=== PATIENT | female | born 1995 | race Caucasian/White ===

== ENCOUNTER 2017-05-04 18:48 | Emergency (ER) | payer MEDICAID ==
[2017-05-04 19:10] VITALS: BP 129/56
[2017-05-04] MEDS ORDERED: ALBUTEROL NEB 2.5 MG/3 ML INH STA (20:38)
[2017-05-04] MEDS ORDERED: predniSONE 20 MG TABLET PO STA (20:39)
--- NOTE | 2017-05-04 21:11 | XRAY Preliminary Report ---
Exam: XR CHEST 1 VIEW X-RAY IMPRESSION: Normal single view chest. [facility] SITE ID: [id number]
--- NOTE | 2017-05-04 21:13 | XRAY Report ---
EXAM: CHEST RADIOGRAPHY EXAM DATE: 05/04/2017 08:54 PM. CLINICAL HISTORY: Cough. COMPARISON: None. TECHNIQUE: 1 view. FINDINGS: Lungs/Pleura: No focal opacities evident. No pleural effusion. No pneumothorax. Mediastinum: Within exam limitations, the cardiomediastinal contour is normal. Other: None. IMPRESSION: Normal single view chest. [facility] Referring Provider Line: [phone] SITE ID: [id number]
--- NOTE | 2017-05-04 21:35 | ED Physician Documentation ---
PD HPI URI - Stated complaint Stated Complaint: COUGH/VOMITING BLOOD/CHEST TIGHTNESS - Chief complaint Chief Complaint: Resp - History obtained from History obtained from: Patient, Friend - History of Present Illness Timing - onset: Yesterday Timing details: Intermittant Associated symptoms: Dry cough. No: Fever, Chills Similar symptoms before: Work up / diagnostics Recently seen: Not recently seen - Additional information Additional information: Patient is a 22 year old female with a history of asthma who is presenting to the emergency department for wheezing, cough and some blood tinged sputum. Patient states that she has been cough for the last week or so but today she was coughing so much that she threw up and also had some blood tinged sputum with her coughing so she came to the emergency department for evaluation. Review of Systems Constitutional: denies: Fever, Chills, Myalgias Eyes: denies: Decreased vision, Photophobia Ears: reports: Reviewed and negative Nose: denies: Rhinorrhea / runny nose, Congestion Throat: reports: Reviewed and negative Cardiac: denies: Chest pain / pressure, Palpitations Respiratory: reports: Cough, Hemoptysis, Wheezing GI: reports: Vomiting. denies: Nausea : reports: Reviewed and negative Skin: reports: Reviewed and negative Musculoskeletal: reports: Reviewed and negative Neurologic: denies: Generalized weakness, Focal weakness, Headache Immunocompromised: denies: Immunocompromised PD PAST MEDICAL HISTORY - Past Medical History Past Medical History: No - Past Surgical History Past Surgical History: No - Present Medications Home Medications: Ambulatory Orders Medication Instructions Recorded Confirmed Albuterol Sulfate [Proventil Hfa 1 - 2 puffs INH Q4H PRN #1 inhaler 05/04/17 Inhaler] predniSONE [Prednisone] 40 mg PO DAILY 5 Days tablet 05/04/17 - Allergies Allergies/Adverse Reactions: Allergies Allergy/AdvReac Type Severity Reaction Status Date / Time acetaminophen [From Vicodin] Allergy Hives Verified 05/04/17 19:10 hydrocodone [From Vicodin] Allergy Hives Verified 05/04/17 19:10 - Social History Does the pt smoke?: No Smoking Status: Never smoker Does the pt drink ETOH?: No Does the pt have substance abuse?: Yes Substance Use and Type: Marijuana - Immunizations Immunizations are current?: Yes - POLST Patient has POLST: No PD ED PE NORMAL - Vitals Vital signs reviewed: Yes - General General: Alert and oriented X 3, No acute distress - HEENT HEENT: Atraumatic, PERRL - Neck Neck: Supple, no meningeal sign, No JVD - Cardiac Cardiac: RRR, No murmur - Abdomen Abdomen: Soft, Non tender, Non distended - Derm Derm: Normal color, Warm and dry, No rash - Neuro Neuro: Alert and oriented X 3, No motor deficit, No sensory deficit, Normal speech - Psych Psych: Normal mood PD ED PE EXPANDED - Respiratory Respiratory: Wheezing (minimal wheezing bilaterally) Results - Vitals Vitals: Vital Signs - 24 hr 05/04/17 05/04/17 19:07 20:50 Temperature 36.3 C L Heart Rate 102 H 97 Respiratory 16 16 Rate Blood Pressure 129/56 L O2 Saturation 97 Oxygen O2 Source Room air - Rads (name of study) chest x-ray Radiology: Final report received (normal chest) PD MEDICAL DECISION MAKING - ED course Complexity details: reviewed old records, reviewed results, re-evaluated patient , considered differential, d/w patient ED course: Patient was seen and examined at bedside. patient was well appearing and in no acute distress. Patient was treated with steroids and duoneb. Chest x-ray was ordered. When patient returned from imaging the results were reviewed. there is no acute abnormality. Patient stated that she was feeling a bit better after her treatments. Patient was not hypoxic and was well appearing. patient required no further work up and was stable for discharge with outpatient follow up. Departure - Departure Disposition: 01 Home, Self Care Clinical Impression: Bronchitis Condition: Good Instructions: ED Bronchitis Asthmatic Follow-Up: primary,care provider [Other] - Within 3 Days Prescriptions: Albuterol Sulfate [Proventil Hfa Inhaler] 1 - 2 puffs INH Q4H PRN #1 inhaler PRN Reason: Shortness Of Air/Wheezing predniSONE [Prednisone] 40 mg PO DAILY 5 Days tablet Comments: Your chest x-ray today was within normal limits. there was no sign of pneumonia. Your symptoms are likely viral in nature. You will be on steroids for the next 5 days and you can use your inhaler ever 2 hours as needed. You should take over the counter cough and cold medicines as needed. You should follow up with your doctor if your symptoms persist. You may return to the emergency department at any time for new, worsening or uncontrollable symptoms. Discharge Date/Time: 05/04/17 21:43
== END 2017-05-04 21:43 | disposition home or self-care (01) ==
LOC: ED 18:48
DX: J45.909 Unspecified asthma, uncomplicated (principal)
CPT/HCPCS: 71045; 94640; 99283; J7512; J7613

== ENCOUNTER 2017-06-27 19:21 | Emergency (ER) | payer MEDICAID ==
[2017-06-27] MEDS ORDERED: ALBUTEROL NEB 2.5 MG/3 ML INH STA (20:00)
--- NOTE | 2017-06-27 20:03 | ED Physician Documentation ---
PD HPI DYSPNEA - Stated complaint Stated Complaint: COUGH/LUMP ON CHEST - Chief complaint Chief Complaint: Resp - History obtained from History obtained from: Patient - History of Present Illness Timing - onset: Other (22-year-old woman with multiple complaints, she has a bruise on her left upper chest and she does not know how it got there. She is worried about a blood clot. She also has a week's worth of productive cough with underlying asthma and tobacco abuse. And her menses is heavier than normal with possibility of . At least it was heavier than normal but is back to normal.) Review of Systems Constitutional: denies: Fever, Chills Throat: denies: Sore throat Respiratory: reports: Dyspnea, Cough GI: denies: Abdominal Pain PD PAST MEDICAL HISTORY - Past Medical History Past Medical History: No - Past Surgical History Past Surgical History: No - Present Medications Home Medications: Ambulatory Orders Medication Instructions Recorded Confirmed Albuterol Sulfate [Proventil Hfa 1 - 2 puffs IH Q4H PRN #1 06/27/17 Inhaler] hfa.aer.ad predniSONE [Deltasone] 60 mg PO DAILY 5 Days tablet 06/27/17 - Allergies Allergies/Adverse Reactions: Allergies Allergy/AdvReac Type Severity Reaction Status Date / Time acetaminophen [From Vicodin] Allergy Hives Verified 05/04/17 19:10 hydrocodone [From Vicodin] Allergy Hives Verified 06/27/17 19:33 - Social History Does the pt smoke?: Yes Smoking Status: Current every day smoker Does the pt drink ETOH?: No Does the pt have substance abuse?: Yes - Immunizations Immunizations are current?: Yes - POLST Patient has POLST: No PD ED PE NORMAL - Vitals Vital signs reviewed: Yes - General General: Alert and oriented X 3, No acute distress - HEENT HEENT: PERRL, EOMI, Ears normal, Moist mucous membranes, Pharynx benign - Neck Neck: Supple, no meningeal sign, No bony TTP - Cardiac Cardiac: RRR, No murmur - Respiratory Respiratory: No respiratory distress, Clear bilaterally - Derm Derm: Other (On the left upper chest wall there is a small bruise with mild tenderness without obvious pathologic features.) - Neuro Neuro: Alert and oriented X 3, Normal speech - Psych Psych: Normal mood, Normal affect Results - Vitals Vitals: Vital Signs - 24 hr 06/27/17 06/27/17 06/27/17 19:31 20:11 20:48 Temperature 36.1 C L 36.4 C L Heart Rate 87 77 Respiratory 16 20 Rate Blood Pressure 122/66 120/54 L O2 Saturation 99 Oxygen O2 Source Room air - Labs Labs: Laboratory Tests 06/27/17 20:11 Ur Specific [place] >=1.030 H Urine HCG, Qual NEGATIVE Departure - Departure Disposition: Home, Self Care Clinical Impression: Vaginal bleeding Traumatic ecchymosis of chest Qualifiers: Encounter type: initial encounter Qualified Code(s): S20.20XA - Contusion of thorax, unspecified, initial encounter Asthma Qualifiers: Asthma severity: mild Asthma persistence: intermittent Asthma complication type : with acute exacerbation Qualified Code(s): J45.21 - Mild intermittent asthma with (acute) exacerbation Condition: Good Record reviewed to determine appropriate education?: Yes Instructions: Asthma Dc Prescriptions: Albuterol Sulfate [Proventil Hfa Inhaler] 1 - 2 puffs IH Q4H PRN #1 hfa.[email or web address] PRN Reason: Cough predniSONE [Deltasone] 60 mg PO DAILY 5 Days tablet Comments: Call your doctor to arrange a follow-up appointment, make the next available appointment. In the interim, return anytime if worse or if new symptoms develop. Discharge Date/Time: 06/27/17 20:53
[2017-06-27 20:16] LABS: HCG UR QUAL NEGATIVE
[2017-06-27 20:49] VITALS: BP 120/54
== END 2017-06-27 20:53 | disposition home or self-care (01) ==
LOC: ED 19:21
DX: S20.212A Contusion of left front wall of thorax, initial encounter (principal); J45.21 Mild intermittent asthma with (acute) exacerbation; N93.9 Abnormal uterine and vaginal bleeding, unspecified; F17.200 Nicotine dependence, unspecified, uncomplicated
CPT/HCPCS: 81025; 94640; 99283

== ENCOUNTER 2017-10-19 19:24 | Emergency (ER) | payer MEDICAID ==
[2017-10-19 19:51] LABS: BILIRUBIN,URINE NEGATIVE (NEGATIVE); GLUCOSE, URINE (UA) NEGATIVE (NEGATIVE); KETONES,URINE (UA) NEGATIVE (NEGATIVE); LEUKOCYTE ESTERASE, URINE NEGATIVE (NEGATIVE); NITRITE,URINE NEGATIVE (NEGATIVE); OCCULT BLOOD,URINE MODERATE (NEGATIVE); PROTEIN,URINE NEGATIVE (NEGATIVE); UROBILINOGEN,URINE 0.2 (NORMAL) E.U./dL (NORMAL)
[2017-10-19 19:52] LABS: CLARITY,URINE HAZY (CLEAR)
[2017-10-19 19:53] LABS: HCG UR QUAL POSITIVE
[2017-10-19 19:56] LABS: BACTERIA,URINE Rare /HPF (None Seen); SQUAMOUS EPITHELIAL CELL,UR MOD Squamous (<= Few)
[2017-10-19 20:44] LABS: BASOPHILS # (AUTO) 0.1 10^3/uL (0.0-0.1); BASOPHILS % (AUTO) 0.7 %; EOSINOPHILS # (AUTO) 0.2 10^3/uL (0.0-0.7); EOSINOPHILS % (AUTO) 1.7 %; HGB - HEMOGLOBIN 12.9 g/dL (12.0-16.0); LYMPHOCYTES # (AUTO) 4.1 10^3/uL (1.5-3.5); LYMPHOCYTES % (AUTO) 38.5 %; MEAN CORPUSCULAR HEMOGLOBIN 29.8 pg (27.0-31.0); MEAN CORPUSCULAR HGB CONC 32.8 g/dL (32.0-36.0); MEAN CORPUSCULAR VOLUME 90.9 fL (81.0-99.0); MEAN PLATELET VOLUME 7.8 fL (7.9-10.8); MONOCYTES # (AUTO) 0.6 10^3/uL (0.0-1.0); MONOCYTES % (AUTO) 5.8 %; NEUTROPHILS # (AUTO) 5.7 10^3/uL (1.5-6.6); NEUTROPHILS % (AUTO) 53.3 %; PLT - PLATELET COUNT 298 10^3/uL (130-450); RED BLOOD COUNT 4.34 10^6/uL (4.20-5.40); RED CELL DISTRIBUTION WIDTH 13.3 % (12.0-15.0); WHITE BLOOD COUNT 10.7 x10^3/uL (4.8-10.8)
[2017-10-19 20:58] LABS: ALBUMIN 4.1 g/dL (3.2-5.5); ALBUMIN/GLOBULIN RATIO 1.1 (1.0-2.2); BILIRUBIN,TOTAL 0.3 mg/dL (0.2-1.0); CALCIUM 8.9 mg/dL (8.5-10.3); CREATININE 0.8 mg/dL (0.4-1.0); TOTAL PROTEIN 7.7 g/dL (6.7-8.2)
[2017-10-19 21:42] VITALS: BP 122/88
[2017-10-19] MEDS ORDERED: NITROFURANTOIN MACRO 100 MG CAPSULE PO STA (22:03)
--- NOTE | 2017-10-19 22:31 | ED Physician Documentation ---
PD HPI FEMALE - Stated complaint Stated Complaint: VOMITING - Chief complaint Chief Complaint: Abd Pain - History obtained from History obtained from: Patient, Family - History of Present Illness Timing - onset: How many days ago, How many weeks ago (1) Timing - details: Gradual onset, Intermittant Associated symptoms: Abdominal pain. No: Urinary frequency Similar symptoms before: Has not had sx before Recently seen: Not recently seen - Additional information Additional information: Patient is a 22 year old female with no significant past medical history who is presenting to the emergency department for nausea, vomiting and intermittent abdominal pain. patient states that she has had some spotting but does not know when her last cycle was. Review of Systems Ten Systems: 10 systems reviewed and negative GI: reports: Abdominal Pain, Nausea. denies: Vomiting, Constipation, Diarrhea : reports: Vaginal bleeding PD PAST MEDICAL HISTORY - Past Medical History Past Medical History: No - Past Surgical History Past Surgical History: No - Present Medications Home Medications: Ambulatory Orders Medication Instructions Recorded Confirmed Nitrofurantoin Monohyd/M-Cryst 100 mg PO BID 5 Days capsule 10/19/17 [Macrobid 100 mg Capsule] Omeprazole [PriLOSEC] 1 tab PO PRN PRN 10/19/17 10/19/17 - Allergies Allergies/Adverse Reactions: Allergies Allergy/AdvReac Type Severity Reaction Status Date / Time acetaminophen [From Vicodin] Allergy Hives Verified 10/19/17 19:34 hydrocodone [From Vicodin] Allergy Hives Verified 10/19/17 19:34 - Social History Does the pt smoke?: Yes Smoking Status: Current every day smoker Does the pt drink ETOH?: No Does the pt have substance abuse?: Yes - Immunizations Immunizations are current?: Yes - POLST Patient has POLST: No PD ED PE NORMAL - Vitals Vital signs reviewed: Yes - General General: Alert and oriented X 3, No acute distress - HEENT HEENT: Atraumatic - Cardiac Cardiac: RRR - Respiratory Respiratory: No respiratory distress - Abdomen Abdomen: Soft, Non tender, Non distended - Derm Derm: Normal color, No rash - Extremities Extremities: No deformity - Neuro Neuro: Alert and oriented X 3 Eye Opening: Spontaneous Results - Vitals Vitals: Vital Signs - 24 hr 10/19/17 10/19/17 19:31 21:41 Temperature 36.8 C Heart Rate 71 78 Respiratory 18 18 Rate Blood Pressure 116/76 122/88 H O2 Saturation 100 100 Oxygen O2 Source Room air - Labs Labs: Laboratory Tests 10/19/17 10/19/17 10/19/17 19:35 19:35 20:39 WBC 10.7 RBC 4.34 Hgb 12.9 Hct 39.4 MCV 90.9 MCH 29.8 MCHC 32.8 RDW 13.3 Plt Count 298 MPV 7.8 L Neut # (Auto) 5.7 Lymph # (Auto) 4.[address] [place] # (Auto) 0.6 Eos # (Auto) 0.2 Baso # (Auto) 0.1 Absolute Nucleated RBC 0.01 Nucleated RBC % 0.1 Sodium Potassium Chloride Carbon Dioxide Anion Gap BUN Creatinine Estimated GFR (MDRD) Glucose Calcium Total Bilirubin AST ALT Alkaline Phosphatase Total Protein Albumin Globulin Albumin/Globulin Ratio Lipase HCG, Quant Urine Color YELLOW Urine Clarity HAZY Urine pH 6.0 Ur Specific [place] >=1.030 H >=1.030 H Urine Protein NEGATIVE Urine Glucose (UA) NEGATIVE Urine Ketones NEGATIVE Urine Occult Blood MODERATE H Urine Nitrite NEGATIVE Urine Bilirubin NEGATIVE Urine Urobilinogen 0.2 (NORMAL) Ur Leukocyte Esterase NEGATIVE Urine RBC 6-10 H Urine WBC 11-25 H Ur Squamous Epith Cells MOD Squamous H Urine Bacteria Rare Urine Culture Comments NOT INDICATED Urine HCG, Qual POSITIVE Blood Type 10/19/17 10/19/17 10/19/17 20:39 20:39 20:39 WBC RBC Hgb Hct MCV MCH MCHC RDW Plt Count MPV Neut # (Auto) Lymph # (Auto) [place] # (Auto) Eos # (Auto) Baso # (Auto) Absolute Nucleated RBC Nucleated RBC % Sodium 139 Potassium 3.8 Chloride 106 Carbon Dioxide 25 Anion Gap 8.0 BUN 12 Creatinine 0.8 Estimated GFR (MDRD) 88 L Glucose 92 Calcium 8.9 Total Bilirubin 0.3 AST 18 ALT 13 Alkaline Phosphatase 81 Total Protein 7.7 Albumin 4.1 Globulin 3.6 Albumin/Globulin Ratio 1.1 Lipase 30 HCG, Quant 8077.00 Urine Color Urine Clarity Urine pH Ur Specific [place] Urine Protein Urine Glucose (UA) Urine Ketones Urine Occult Blood Urine Nitrite Urine Bilirubin Urine Urobilinogen Ur Leukocyte Esterase Urine RBC Urine WBC Ur Squamous Epith Cells Urine Bacteria Urine Culture Comments Urine HCG, Qual Blood Type O POSITIVE - Rads (name of study) pelvic ultrasound Radiology: Prelim report reviewed, Final report received (IUP approximately 5 weeks, no pole appreciated, could be early , follow up necessary) , EMP read contemporaneously PD MEDICAL DECISION MAKING - ED course Complexity details: reviewed old records, reviewed results, re-evaluated patient , considered differential, d/w patient, d/w family ED course: Patient was seen and examined at bedside. urine was collected and patient was found to be and have signs of a urinary tract infection. labs were drawn and imaging was ordered. when patient returned form imaging she was treated with macrobid and results were reviewed. Findings were consistent with either early or miscarriage. Patient was made aware of the findings and given detailed discharge and follow up instructions. patient required no further work up at this time and was stable for discharge with outpatient follow up. - Sepsis Event Vital Signs: Vital Signs - 24 hr 10/19/17 10/19/17 19:31 21:41 Temperature 36.8 C Heart Rate 71 78 Respiratory 18 18 Rate Blood Pressure 116/76 122/88 H O2 Saturation 100 100 Oxygen O2 Source Room air Departure - Departure Disposition: 01 Home, Self Care Clinical Impression: UTI in Condition: Good Instructions: Preg 1st Trimester, ED UTI Cystitis Female Follow-[facility]: [facility] [Provider Group] Krystian Urbina MD [Provider Admit Priv/Credential] - Prescriptions: Nitrofurantoin Monohyd/M-Cryst [Macrobid 100 mg Capsule] 100 mg PO BID 5 Days capsule Comments: Your symptoms today are being caused by a couple of things. you are and you have a urinary tract infection. you have been started on an antibiotic and will need to be on it for the next 5 days. it is important that you stay well hydrated. you should follow up with your doctor or you can call the office of Dr. Urbina to schedule a follow up appointment. you should return to the emergency department for vaginal bleeding, new worsening or uncontrollable symptoms.
--- NOTE | 2017-10-19 22:34 | Ultrasound Report ---
Procedure Date: 10/19/2017 Accession Number: [id number] / [id number] Procedure: US - OB First Trimester CPT Code: FULL RESULT: EXAM: FIRST TRIMESTER OBSTETRIC ULTRASOUND (Less than 11 weeks) EXAM DATE: 10/19/2017 09:49 PM. CLINICAL HISTORY: Preg vag bleeding. LMP: 09/09/2017. COMPARISONS: None. TECHNIQUE: Transabdominal ultrasound examination with static image documentation. The patient declines transvaginal imaging. CLINICAL DATES: EGA 5 weeks 5 days with MOISES 06/16/2018 based on LMP. ASSESSMENT: Gestational Sac: Single intrauterine. Mean gestational sac diameter: 11.1 mm = 5 weeks 1 day. Embryo: Not visualized. Yolk sac: Possible small yolk sac measuring 3.7 mm. Amniotic fluid: Not accurately assessed at this gestational age. Early placenta: Not visible at this gestational age. Other: No perigestational fluid collection demonstrated. MATERNAL STRUCTURES: Uterus: Anteverted/Retroverted. Unremarkable. Cervix: Closed. Right Ovary/Adnexa: Unremarkable. The ovary measures 3.1 x 1.5 x 3.5 cm, volume 8.5 cc. Left Ovary/Adnexa: Unremarkable. The ovary measures 2.7 x 2.0 x 2.2 cm, volume 6.1 cc. Free Fluid: None. Other: None. IMPRESSION: 1. Intrauterine gestational sac measuring approximately 5 weeks 1 day. Viability is unknown. Embryo not visualized on this transabdominal examination. The patient declines transvaginal imaging. 2. Short-term sonographic follow-up is recommended. [facility]
== END 2017-10-19 22:39 | disposition home or self-care (01) ==
LOC: ED 19:24
DX: O23.40 Unspecified infection of urinary tract in pregnancy, unspecified trimester (principal); O99.330 Smoking (tobacco) complicating pregnancy, unspecified trimester
CPT/HCPCS: 36415; 76801; 80053; 81001; 81025; 83690; 84702; 85025; 86900; 86901; 99283; A9270; 87086

== ENCOUNTER 2017-10-29 13:36 | Emergency (ER) | payer MEDICAID ==
[2017-10-29 14:11] VITALS: BP 129/73
== END 2017-10-29 15:50 | disposition left against medical advice (07) ==
LOC: ED 13:36
DX: Z53.21 Procedure and treatment not carried out due to patient leaving prior to being seen by health care provider (principal)

== ENCOUNTER 2017-11-10 10:30 | Outpatient (CLI) | payer MEDICAID ==
--- NOTE | 2017-11-10 13:05 | Ultrasound Report ---
Procedure Date: 11/10/2017 Accession Number: [id number] / [id number] Procedure: US - OB Transvaginal CPT Code: FULL RESULT: EXAM: OB First Trimester, OB Transvaginal DATE: 11/10/2017 11:56 AM CLINICAL HISTORY: ENCOUNTER FOR TEST, RESULT POSITIVE TECHNIQUE: Real-time scanning was performed with community engagement representative static images obtained. Transabdominal and transvaginal technique were used. COMPARISON: None FINDINGS: The patient is self reported last menstrual period is 09/09/2017. The maternal uterus is anteverted with a closed cervix. Right ovary measures 2.9 x 2.8 x 3.3 cm a volume of 14 mL and is otherwise unremarkable preserved flow by color Doppler. The left ovary measures 3.6 x 2.2 x 2.1 cm for a volume of 9 mL and is unremarkable with preserved flow by color Doppler. There is a single live intrauterine gestation with a gestational sac diameter of 28.8 mm a crown-rump length of 22.5 mm and a heart rate of 177 bpm. The yolk sac measures 4 mm. The sonographic age is 8 weeks and 6 days by crown-rump length. There is no perigestational fluid collection. IMPRESSION: Single live intrauterine gestation with a sonographic age of 8 weeks and 6 days by crown-rump length.
--- NOTE | 2017-11-10 13:05 | Ultrasound Report ---
Procedure Date: 11/10/2017 Accession Number: [id number] / [id number] Procedure: US - OB First Trimester CPT Code: FULL RESULT: EXAM: OB First Trimester, OB Transvaginal DATE: 11/10/2017 11:56 AM CLINICAL HISTORY: ENCOUNTER FOR TEST, RESULT POSITIVE TECHNIQUE: Real-time scanning was performed with customer solutions representative static images obtained. Transabdominal and transvaginal technique were used. COMPARISON: None FINDINGS: The patient is self reported last menstrual period is 09/09/2017. The maternal uterus is anteverted with a closed cervix. Right ovary measures 2.9 x 2.8 x 3.3 cm a volume of 14 mL and is otherwise unremarkable preserved flow by color Doppler. The left ovary measures 3.6 x 2.2 x 2.1 cm for a volume of 9 mL and is unremarkable with preserved flow by color Doppler. There is a single live intrauterine gestation with a gestational sac diameter of 28.8 mm a crown-rump length of 22.5 mm and a heart rate of 177 bpm. The yolk sac measures 4 mm. The sonographic age is 8 weeks and 6 days by crown-rump length. There is no perigestational fluid collection. IMPRESSION: Single live intrauterine gestation with a sonographic age of 8 weeks and 6 days by crown-rump length.
== END 2017-11-10 10:31 | disposition home or self-care (01) ==
LOC: DI 10:30
PROVIDERS: ATTEND Registered Nurse
DX: Z32.01 Encounter for pregnancy test, result positive (principal)
CPT/HCPCS: 76801; 76817

== ENCOUNTER 2017-11-27 16:10 | Outpatient (CLI) | payer MEDICAID ==
[2017-11-27 16:29] LABS: BASOPHILS # (AUTO) 0.1 10^3/uL (0.0-0.1); BASOPHILS % (AUTO) 0.9 %; EOSINOPHILS # (AUTO) 0.1 10^3/uL (0.0-0.7); EOSINOPHILS % (AUTO) 0.7 %; HGB - HEMOGLOBIN 13.3 g/dL (12.0-16.0); LYMPHOCYTES # (AUTO) 3.5 10^3/uL (1.5-3.5); LYMPHOCYTES % (AUTO) 32.3 %; MEAN CORPUSCULAR HGB CONC 34.2 g/dL (32.0-36.0); MEAN CORPUSCULAR VOLUME 87.5 fL (81.0-99.0); MEAN PLATELET VOLUME 7.4 fL (7.9-10.8); MONOCYTES # (AUTO) 0.8 10^3/uL (0.0-1.0); MONOCYTES % (AUTO) 7.5 %; NEUTROPHILS # (AUTO) 6.4 10^3/uL (1.5-6.6); NEUTROPHILS % (AUTO) 58.6 %; PLT - PLATELET COUNT 275 10^3/uL (130-450); RED BLOOD COUNT 4.45 10^6/uL (4.20-5.40); RED CELL DISTRIBUTION WIDTH 13.9 % (12.0-15.0); WHITE BLOOD COUNT 10.9 x10^3/uL (4.8-10.8)
[2017-11-27 16:40] LABS: BILIRUBIN,URINE NEGATIVE (NEGATIVE); GLUCOSE, URINE (UA) NEGATIVE (NEGATIVE); KETONES,URINE (UA) NEGATIVE (NEGATIVE); LEUKOCYTE ESTERASE, URINE NEGATIVE (NEGATIVE); NITRITE,URINE NEGATIVE (NEGATIVE); OCCULT BLOOD,URINE SMALL (NEGATIVE); PROTEIN,URINE NEGATIVE (NEGATIVE); UROBILINOGEN,URINE 0.2 (NORMAL) E.U./dL (NORMAL)
[2017-11-27 17:07] LABS: BACTERIA,URINE Many /HPF (None Seen); CLARITY,URINE HAZY (CLEAR); SQUAMOUS EPITHELIAL CELL,UR MANY Squamous (<= Few)
[2017-11-28 13:42] LABS: HEPATITIS C ANTIBODY NON-REACTIVE (NON-REACTIVE); HIV AG/AB 4TH GEN NON-REACTIVE (NON-REACTIVE)
[2017-11-28 13:43] LABS: HEPATITIS B SURFACE ANTIGEN NON-REACTIVE (NON-REACTIVE)
== END 2017-11-27 16:11 | disposition home or self-care (01) ==
LOC: LAB 16:10
PROVIDERS: ATTEND Nurse Practitioner Obstetrics & Gynecology
DX: Z36.9 Encounter for antenatal screening, unspecified (principal)
CPT/HCPCS: 36415; 81001; 81599; 85025; 86592; 86762; 86803; 86850; 86900; 86901; 87340; 87389

== ENCOUNTER 2017-11-28 19:29 | Emergency (ER) | payer MEDICAID ==
[2017-11-28] MEDS ORDERED: SODIUM CHLORIDE 0.9% 1,000 ML IV ONE (19:45)
[2017-11-28] MEDS ORDERED: METOCLOPRAMIDE 10 MG/2 ML VIAL IVP STA (19:45)
[2017-11-28 20:08] LABS: BASOPHILS # (AUTO) 0.1 10^3/uL (0.0-0.1); BASOPHILS % (AUTO) 0.9 %; EOSINOPHILS # (AUTO) 0.1 10^3/uL (0.0-0.7); EOSINOPHILS % (AUTO) 0.5 %; HGB - HEMOGLOBIN 13.3 g/dL (12.0-16.0); LYMPHOCYTES # (AUTO) 3.4 10^3/uL (1.5-3.5); LYMPHOCYTES % (AUTO) 30.5 %; MEAN CORPUSCULAR HEMOGLOBIN 30.3 pg (27.0-31.0); MEAN CORPUSCULAR HGB CONC 34.7 g/dL (32.0-36.0); MEAN CORPUSCULAR VOLUME 87.3 fL (81.0-99.0); MEAN PLATELET VOLUME 7.6 fL (7.9-10.8); MONOCYTES # (AUTO) 0.6 10^3/uL (0.0-1.0); MONOCYTES % (AUTO) 5.5 %; NEUTROPHILS # (AUTO) 6.9 10^3/uL (1.5-6.6); NEUTROPHILS % (AUTO) 62.6 %; PLT - PLATELET COUNT 284 10^3/uL (130-450); RED CELL DISTRIBUTION WIDTH 13.9 % (12.0-15.0)
[2017-11-28 20:20] LABS: ALBUMIN 4.2 g/dL (3.2-5.5); ALBUMIN/GLOBULIN RATIO 1.2 (1.0-2.2); BILIRUBIN,TOTAL 0.3 mg/dL (0.2-1.0); CALCIUM 9.3 mg/dL (8.5-10.3); CREATININE 0.6 mg/dL (0.4-1.0); TOTAL PROTEIN 7.7 g/dL (6.7-8.2)
--- NOTE | 2017-11-28 20:21 | ED Physician Documentation ---
History of Present Illness - Stated complaint Stated Complaint: 11 WKS PREG/VOMITTING - Chief complaint Chief Complaint: Abd Pain - History obtained from History obtained from: Patient, Family - History of Present Illness Timing: How many weeks ago (several) Pain level max: 0 Pain level now: 0 Improved by: nothing Worsened by: eating - Additonal information Additional information: Patient is a 22-year-old female, 1 para 0, approximately 11 weeks who presents to the emergency department with nausea and vomiting for the past several days. Worsened today. Unable to tolerate p.o. today. Denies any abdominal cramping, Vaginal bleeding or discharge. Review of Systems Constitutional: denies: Fever, Chills Respiratory: denies: Cough GI: reports: Nausea, Vomiting. denies: Diarrhea Skin: denies: Rash Musculoskeletal: denies: Neck pain, Back pain Neurologic: denies: Headache PD PAST MEDICAL HISTORY - Past Medical History Past Medical History: No - Past Surgical History Past Surgical History: No - Present Medications Home Medications: Ambulatory Orders Medication Instructions Recorded Confirmed Metoclopramide [Reglan] 10 mg PO Q6H PRN #10 tablet 11/28/17 Ondansetron Odt [Zofran Odt] 4 tab PO Q8HR PRN 11/28/17 11/28/17 Ranitidine HCl [Acid Overhead Foreman] 1 tab PO DAILY 11/28/17 11/28/17 - Allergies Allergies/Adverse Reactions: Allergies Allergy/AdvReac Type Severity Reaction Status Date / Time acetaminophen [From Vicodin] Allergy Hives Verified 11/28/17 20:04 hydrocodone [From Vicodin] Allergy Hives Verified 11/28/17 20:04 - Social History Does the pt smoke?: Yes Smoking Status: Current every day smoker Does the pt drink ETOH?: No Does the pt have substance abuse?: Yes - Immunizations Immunizations are current?: Yes - POLST Patient has POLST: No PD ED PE NORMAL - Vitals Vital signs reviewed: Yes - General General: Alert and oriented X 3 - HEENT HEENT: Moist mucous membranes - Neck Neck: Supple, no meningeal sign - Cardiac Cardiac: RRR - Respiratory Respiratory: No respiratory distress, Clear bilaterally - Abdomen Abdomen: Soft, Non tender, Non distended - Derm Derm: Warm and dry - Neuro Neuro: Alert and oriented X 3 - Psych Psych: Normal mood, Normal affect Results - Vitals Vitals: Vital Signs - 24 hr 11/28/17 11/28/17 19:30 20:53 Temperature 36.4 C L 36.1 C L Heart Rate 75 67 Respiratory 18 16 Rate Blood Pressure 145/94 H 143/76 H O2 Saturation 98 100 Oxygen O2 Source Room air - Labs Labs: Laboratory Tests 11/28/17 11/28/17 11/28/17 19:55 19:55 20:34 WBC 11.0 H RBC 4.40 Hgb 13.3 Hct 38.4 MCV 87.3 MCH 30.3 MCHC 34.7 RDW 13.9 Plt Count 284 MPV 7.6 L Neut # (Auto) 6.9 H Lymph # (Auto) 3.4 [place] # (Auto) 0.6 Eos # (Auto) 0.1 Baso # (Auto) 0.1 Absolute Nucleated RBC 0.01 Nucleated RBC % 0.0 Sodium 136 Potassium 3.4 L Chloride 104 Carbon Dioxide 24 Anion Gap 8.0 BUN 5 L Creatinine 0.6 Estimated GFR (MDRD) 123 Glucose 93 Calcium 9.3 Total Bilirubin 0.3 AST 22 ALT 25 Alkaline Phosphatase 58 Total Protein 7.7 Albumin 4.2 Globulin 3.5 Albumin/Globulin Ratio 1.2 Lipase 45 Urine Color YELLOW Urine Clarity CLEAR Urine pH 6.0 Ur Specific [place] 1.025 Urine Protein NEGATIVE Urine Glucose (UA) NEGATIVE Urine Ketones 40 H Urine Occult Blood NEGATIVE Urine Nitrite NEGATIVE Urine Bilirubin NEGATIVE Urine Urobilinogen 0.2 (NORMAL) Ur Leukocyte Esterase NEGATIVE Ur Microscopic Review NOT INDICATED Urine Culture Comments NOT INDICATED PD MEDICAL DECISION MAKING - ED course Complexity details: reviewed results, re-evaluated patient, considered differential, d/w patient ED course: Patient is 11 weeks , presents with nausea and vomiting. Feels better after IV fluids and Reglan. Bedside ultrasound reveals a intrauterine with movement present. heart rate of 162 bpm. Patient feels much better after medications and is tolerating p.o. without difficulty. Abdomen is soft, nontender nondistended. No vaginal bleeding or discharge. I will have her follow-up with her doctor for further care. Patient counseled regarding signs and symptoms for which I believe and urgent re-evaluation would be necessary. Patient with good understanding of and agreement to plan and is comfortable going home at this time This document was made in part using voice recognition software. While efforts are made to proofread this document, sound alike and grammatical errors may occur. - Sepsis Event Vital Signs: Vital Signs - 24 hr 11/28/17 11/28/17 19:30 20:53 Temperature 36.4 C L 36.1 C L Heart Rate 75 67 Respiratory 18 16 Rate Blood Pressure 145/94 H 143/76 H O2 Saturation 98 100 Oxygen O2 Source Room air Departure - Departure Disposition: Home, Self Care Clinical Impression: Dehydration Vomiting Qualifiers: Vomiting type: unspecified Vomiting Intractability: non-intractable Nausea presence: with nausea Qualified Code(s): R11.2 - Nausea with vomiting, unspecified Qualifiers: Weeks of gestation: 11 weeks Qualified Code(s): Z3A.11 - 11 weeks gestation of Condition: Good Instructions: ED Preg Morning Sickness, ED Care Follow-Up: your,doctor in 1 week [Other] Prescriptions: Metoclopramide [Reglan] 10 mg PO Q6H PRN #10 tablet PRN Reason: Nausea / Vomiting Comments: Drink plenty of fluids. Return if you worsen. Discharge Date/Time: 11/28/17 21:03
[2017-11-28 20:45] LABS: BILIRUBIN,URINE NEGATIVE (NEGATIVE); GLUCOSE, URINE (UA) NEGATIVE (NEGATIVE); KETONES,URINE (UA) 40 mg/dL (NEGATIVE); LEUKOCYTE ESTERASE, URINE NEGATIVE (NEGATIVE); NITRITE,URINE NEGATIVE (NEGATIVE); OCCULT BLOOD,URINE NEGATIVE (NEGATIVE); PROTEIN,URINE NEGATIVE (NEGATIVE); UROBILINOGEN,URINE 0.2 (NORMAL) E.U./dL (NORMAL)
[2017-11-28 20:49] LABS: CLARITY,URINE CLEAR (CLEAR)
[2017-11-28 20:54] VITALS: BP 143/76
== END 2017-11-28 21:03 | disposition home or self-care (01) ==
LOC: ED 19:29
DX: O21.1 Hyperemesis gravidarum with metabolic disturbance (principal); O99.331 Smoking (tobacco) complicating pregnancy, first trimester; F17.200 Nicotine dependence, unspecified, uncomplicated; Z3A.11 11 weeks gestation of pregnancy
CPT/HCPCS: 36415; 80053; 81003; 83690; 85025; 96361; 96374; 99283; J2765; 81001; 87086

== ENCOUNTER 2017-11-30 16:09 | Outpatient (CLI) | payer MEDICAID ==
[2017-11-30 16:34] LABS: MUDS CUTOFF CONCENTRATIONS CUTOFF CONC BELOW:
[2017-11-30 16:53] LABS: AMPHETAMINE SCREEN,URINE NEGATIVE (NEGATIVE); BENZODIAZEPINES SCREEN, URINE NEGATIVE (NEGATIVE); COCAINE SCREEN URINE NEGATIVE (NEGATIVE); METHAMPHETAMINES SCREEN, URINE NEGATIVE (NEGATIVE); OPIATE SCREEN, URINE NEGATIVE (NEGATIVE)
[2017-11-30 16:54] LABS: METHADONE SCREEN, URINE NEGATIVE (NEGATIVE); OXYCODONE SCREEN, URINE NEGATIVE (NEGATIVE); PROPOXYPHENE SCREEN, URINE NEGATIVE (NEGATIVE); TRICYCLIC ANTIDEPRESSANT,URINE NEGATIVE (NEGATIVE)
== END 2017-11-30 16:10 | disposition home or self-care (01) ==
LOC: LAB.R 16:09
PROVIDERS: ATTEND Nurse Practitioner Obstetrics & Gynecology
DX: Z36.9 Encounter for antenatal screening, unspecified (principal)
CPT/HCPCS: 80306

== ENCOUNTER 2018-01-11 06:55 | Emergency (ER) | payer MEDICAID ==
[2018-01-11] MEDS ORDERED: METOCLOPRAMIDE 10 MG/2 ML VIAL IVP STA (07:42)
[2018-01-11] MEDS ORDERED: SODIUM CHLORIDE 0.9% 1,000 ML IV ONE (07:42)
[2018-01-11] MEDS ORDERED: ACETAMINOPHEN 1,000 MG/100 ML 100 ML IV STA (07:44)
[2018-01-11 07:45] LABS: BILIRUBIN,URINE NEGATIVE (NEGATIVE); GLUCOSE, URINE (UA) NEGATIVE (NEGATIVE); KETONES,URINE (UA) NEGATIVE (NEGATIVE); LEUKOCYTE ESTERASE, URINE TRACE (NEGATIVE); NITRITE,URINE NEGATIVE (NEGATIVE); OCCULT BLOOD,URINE NEGATIVE (NEGATIVE); PH,URINE 7.5 PH (5.0-7.5); PROTEIN,URINE NEGATIVE (NEGATIVE); UROBILINOGEN,URINE 0.2 (NORMAL) E.U./dL (NORMAL)
[2018-01-11] MEDS ORDERED: FAMOTIDINE 20 MG/50 ML 50 ML IV ONE (07:45)
[2018-01-11 07:48] LABS: CLARITY,URINE HAZY (CLEAR)
--- NOTE | 2018-01-11 07:48 | ED Physician Documentation ---
History of Present Illness - Stated complaint Stated Complaint: VOMITING W/BLOOD 17 WKS PREG - Chief complaint Chief Complaint: Abd Pain - Additonal information Additional information: hx from pt 22 y/o f followed by [facility], [place] 17 weeks EGA preg uncomplicated except persistent vomiting and GERD has had recent vomiting, after numerous bouts of vomiting noted streaks of blood, no bloody BM no diarrhea no bad food sick contacts travel having lower abd pain R > L and uterine cramps no dysuria no vag bleed or leaking fluid no prior surgeries Review of Systems Constitutional: denies: Fever Cardiac: denies: Chest pain / pressure Respiratory: denies: Dyspnea GI: reports: Abdominal Pain, Nausea, Vomiting. denies: Diarrhea : reports: Now EGA. denies: Vaginal bleeding Endocrine: denies: Easy bruising / bleeding Immunocompromised: denies: Immunocompromised PD PAST MEDICAL HISTORY - Past Medical History Past Medical History: No - Past Surgical History Past Surgical History: No - Present Medications Home Medications: Ambulatory Orders Medication Instructions Recorded Confirmed Metoclopramide [Reglan] 10 mg PO Q6H PRN #10 tablet 11/28/17 Ondansetron Odt [Zofran Odt] 4 tab PO Q8HR PRN 11/28/17 11/28/17 Ranitidine HCl [Acid Astrophysics Teacher] 1 tab PO DAILY 11/28/17 11/28/17 - Allergies Allergies/Adverse Reactions: Allergies Allergy/AdvReac Type Severity Reaction Status Date / Time acetaminophen [From Vicodin] Allergy Hives Verified 01/11/18 07:02 hydrocodone [From Vicodin] Allergy Hives Verified 01/11/18 07:02 - Social History Does the pt smoke?: Yes Smoking Status: Current every day smoker Does the pt drink ETOH?: No Does the pt have substance abuse?: Yes - Immunizations Immunizations are current?: Yes - POLST Patient has POLST: No PD ED PE NORMAL - Vitals Vital signs reviewed: Yes - Neck Neck: Supple, no meningeal sign - Cardiac Cardiac: RRR - Respiratory Respiratory: No respiratory distress - Abdomen Abdomen: Soft, Other (gravid, TTP RLQ, no guarding, + rebound) - Derm Derm: Normal color - Neuro Neuro: Alert and oriented X 3 Results - Vitals Vitals: Vital Signs - 24 hr 01/11/18 07:00 Temperature 36.0 C L Heart Rate 82 Respiratory 18 Rate Blood Pressure 126/60 O2 Saturation 99 Oxygen O2 Source Room air - Rads (name of study) RLQ sono Radiology: See rad report (appendix not seen, no secondary signs of appendicitis) OB sono Radiology: See rad report (live IUP, no hemorrhage, R ovary nl) PD MEDICAL DECISION MAKING - ED course ED course: sono non diagnostic for appy but on serial abd exams, RLQ pian has improved so do not feel CT or MRI are needed at this time - Sepsis Event Vital Signs: Vital Signs - 24 hr 01/11/18 07:00 Temperature 36.0 C L Heart Rate 82 Respiratory 18 Rate Blood Pressure 126/60 O2 Saturation 99 Oxygen O2 Source Room air Departure - Departure Disposition: 01 Home, Self Care Clinical Impression: Gastritis Qualifiers: Gastritis type: unspecified gastritis Chronicity: acute Gastritis bleeding: with bleeding Qualified Code(s): K29.01 - Acute gastritis with bleeding Qualifiers: Weeks of gestation: 17 weeks Qualified Code(s): Z3A.17 - 17 weeks gestation of Condition: Good Instructions: ED Gastritis Follow-Up: [facility] [Provider Group] Comments: The ultrasound showed the baby and placenta and right ovary are all fine and there were no signs of appendicitis On repeat exam after just IV fluids pepcid and acetaminophen, the appendix area was no longer tender Your blood count was fine - you have not lost too much blood And the liver and kidney tests were fine too The lipase was a little elevated likely due to vomiting And the clean catch urine did not show an infection Since you are feeling better and the tests are reassuring, I think it is safe for you to go home Continue your reglan and ranitidine. Follow up with your OB for a recheck exam and blood count this week. Return if worse Forms: Activity restrictions Discharge Date/Time: 01/11/18 11:05
[2018-01-11 07:55] LABS: RBC,URINE 0-5 /HPF (0-5); SQUAMOUS EPITHELIAL CELL,UR MOD Squamous (<= Few)
[2018-01-11 07:56] LABS: BACTERIA,URINE Moderate /HPF (None Seen)
[2018-01-11 08:33] LABS: BASOPHILS % (AUTO) 0.4 %; EOSINOPHILS # (AUTO) 0.1 10^3/uL (0.0-0.7); EOSINOPHILS % (AUTO) 0.6 %; HGB - HEMOGLOBIN 12.8 g/dL (12.0-16.0); LYMPHOCYTES # (AUTO) 2.1 10^3/uL (1.5-3.5); LYMPHOCYTES % (AUTO) 22.1 %; MEAN CORPUSCULAR HEMOGLOBIN 31.4 pg (27.0-31.0); MEAN CORPUSCULAR HGB CONC 35.2 g/dL (32.0-36.0); MEAN CORPUSCULAR VOLUME 89.2 fL (81.0-99.0); MEAN PLATELET VOLUME 8.2 fL (7.9-10.8); MONOCYTES # (AUTO) 0.4 10^3/uL (0.0-1.0); MONOCYTES % (AUTO) 4.5 %; NEUTROPHILS % (AUTO) 72.4 %; PLT - PLATELET COUNT 243 10^3/uL (130-450); RED BLOOD COUNT 4.09 10^6/uL (4.20-5.40); RED CELL DISTRIBUTION WIDTH 14.1 % (12.0-15.0); WHITE BLOOD COUNT 9.7 x10^3/uL (4.8-10.8)
[2018-01-11 08:42] LABS: ALBUMIN 3.6 g/dL (3.2-5.5); ALBUMIN/GLOBULIN RATIO 0.9 (1.0-2.2); BILIRUBIN,TOTAL 0.3 mg/dL (0.2-1.0); CALCIUM 8.8 mg/dL (8.5-10.3); CREATININE 0.6 mg/dL (0.4-1.0); TOTAL PROTEIN 7.5 g/dL (6.7-8.2)
--- NOTE | 2018-01-11 08:45 | Ultrasound Report ---
Reason: 17wk EGA RLQ pain, uterine cramps, vomit Procedure Date: 01/11/2018 Accession Number: [id number] / [id number] Procedure: US - Abdomen Limited CPT Code: FULL RESULT: EXAM: ABDOMEN ULTRASOUND LIMITED, RUQ EXAM DATE: 01/11/2018 08:34 AM. CLINICAL HISTORY: 17wk EGA RLQ pain, uterine cramps, vomit. COMPARISON: None. TECHNIQUE: Real-time scanning was performed with static images obtained. FINDINGS: Limited focused ultrasound of the right lower quadrant was performed in an attempt to evaluate the patient for appendicitis sonographically. The appendix is not seen. No free fluid or lymph nodes are seen in the right lower quadrant and no thickening of the bowel loops is appreciated. IMPRESSION: Nonvisualization of the appendix. RADIA
--- NOTE | 2018-01-11 08:54 | Ultrasound Report ---
Reason: 17 wk EGA RLQ pain uterine cramping vomit Procedure Date: 01/11/2018 Accession Number: [id number] / [id number] Procedure: US - OB Limited CPT Code: FULL RESULT: EXAM: LIMITED OBSTETRICAL ULTRASOUND EXAM DATE: 01/11/2018 08:35 AM. CLINICAL HISTORY: 17 wk EGA, RLQ pain, uterine cramping, vomit. COMPARISON: None. TECHNIQUE: Real-time sonographic evaluation of the fetus performed by the tape weaver. Multiple representative phlebotomy services static images were saved for review. DATING: Established EGA 17 weeks 5 days with MOISES 06/16/2018. GENERAL EVALUATION [place] . Cardiac activity: 148 bpm. movement: Visualized. Presentation: Breech Placenta: Fundal/anterior position. No previa. Amniotic fluid: Normal. FAYE 10 cm. MVP 2.9 cm. MATERNAL STRUCTURES The cervix is long and closed measuring 4.2 cm. The right ovary is visualized and appears unremarkable. Left ovary is not well seen. IMPRESSION: 1. [place] live intrauterine with gestational age 17 weeks 5 days based on previously established dates. 2. No perigestational hemorrhage is identified. RADIA
[2018-01-11 10:12] LABS: BILIRUBIN,URINE NEGATIVE (NEGATIVE); GLUCOSE, URINE (UA) NEGATIVE (NEGATIVE); KETONES,URINE (UA) NEGATIVE (NEGATIVE); LEUKOCYTE ESTERASE, URINE NEGATIVE (NEGATIVE); NITRITE,URINE NEGATIVE (NEGATIVE); OCCULT BLOOD,URINE NEGATIVE (NEGATIVE); PROTEIN,URINE NEGATIVE (NEGATIVE); UROBILINOGEN,URINE 0.2 (NORMAL) E.U./dL (NORMAL)
[2018-01-11 10:18] LABS: CLARITY,URINE CLEAR (CLEAR)
[2018-01-11 10:58] VITALS: BP 124/68
== END 2018-01-11 11:05 | disposition home or self-care (01) ==
LOC: ED 06:55
DX: O99.612 Diseases of the digestive system complicating pregnancy, second trimester (principal); K29.01 Acute gastritis with bleeding; O99.332 Smoking (tobacco) complicating pregnancy, second trimester; Z3A.17 17 weeks gestation of pregnancy
CPT/HCPCS: 36415; 76705; 76815; 80053; 81001; 81003; 83690; 85025; 96361; 96374; 99283; J2765; 87086

== ENCOUNTER 2018-01-27 12:41 | Outpatient (CLI) | payer MEDICAID ==
--- NOTE | 2018-01-28 09:01 | Ultrasound Report ---
Reason: ENCOUNTER FOR SCREENING,UNSPECIFIED Procedure Date: 01/27/2018 Accession Number: [id number] / [id number] Procedure: US - OB Detailed Eval CPT Code: FULL RESULT: EXAM: COMPLETE OBSTETRICAL ULTRASOUND EXAM DATE: 01/27/2018 01:49 PM. CLINICAL HISTORY: anatomic survey. COMPARISON: 11/10/2017. TECHNIQUE: Real-time sonographic evaluation of the fetus performed by the housekeeping laundry worker. Multiple front desk representative static images were saved for review. DATING: Established EGA 20 weeks 0 days with MOISES 06/16/2018 based on LMP. EGA 20 weeks 0 days with MOISES 06/16/2018 based on by first ultrasound on 11/10/2017. EGA 20 weeks 4 days with MOISES 06/12/2018 based on the current ultrasound. GENERAL EVALUATION [facility] . Cardiac activity: 177 bpm. movement: Yes. Presentation: Variable. Placenta: Anterior/fundal position. No evidence for previa. Umbilical cord: 3 vessel cord. Central placental cord origin. Amniotic fluid: Subjectively normal. MVP 4.5 cm. BIOMETRY Bi-Parietal Diameter (BPD): 5.0 cm, 21 weeks 0 days Head Circumference (HC): 17.9 cm, 20 weeks 2 days Abdominal Circumference (AC): 16.4 cm, 21 weeks 2 days Femur Length (FL): 3.2 cm, 20 weeks 0 days FL/AC 19.72% (20.0-24.0%) FL/BPD 65.02% (71.0-87.0%) Estimated Weight: 376 g. ANATOMY The intracranial structures, profile, face/nose/lips, spine, 4 chamber heart and outflow tracts, stomach, abdominal wall and cord insertion, diaphragm, kidneys, bladder, and extremities were visualized and demonstrate no abnormality. MATERNAL STRUCTURES Uterus: Unremarkable. Cervix: Long and closed. Transabdominal length 4.7 cm. Right ovary/adnexa: Unremarkable. Left ovary/adnexa: Unremarkable. Free fluid: None. IMPRESSION: 1. [place] live intrauterine with gestational age 20 weeks 4 days with MOISES 06/12/2018 based on current ultrasound which is concordant with the established MOISES of 06/16/2018. 2. Normal anatomic survey. No anatomic abnormalities are detected at this time. RADIA
== END 2018-01-27 12:42 | disposition home or self-care (01) ==
LOC: DI 12:41
PROVIDERS: ATTEND Nurse Practitioner Obstetrics & Gynecology
DX: Z36.9 Encounter for antenatal screening, unspecified (principal)
CPT/HCPCS: 76811

== ENCOUNTER 2018-02-06 09:47 | Outpatient (CLI) | payer MEDICAID ==
[2018-02-06 10:07] LABS: BILIRUBIN,URINE NEGATIVE (NEGATIVE); GLUCOSE, URINE (UA) NEGATIVE (NEGATIVE); KETONES,URINE (UA) NEGATIVE (NEGATIVE); LEUKOCYTE ESTERASE, URINE NEGATIVE (NEGATIVE); NITRITE,URINE NEGATIVE (NEGATIVE); OCCULT BLOOD,URINE MODERATE (NEGATIVE); PROTEIN,URINE NEGATIVE (NEGATIVE); UROBILINOGEN,URINE 0.2 (NORMAL) E.U./dL (NORMAL)
[2018-02-06 10:13] VITALS: BP 114/63
[2018-02-06] MEDS ORDERED: METOCLOPRAMIDE 10 MG/2 ML VIAL IVP PRN (10:14)
[2018-02-06 10:15] LABS: CLARITY,URINE CLEAR (CLEAR)
[2018-02-06] MEDS ORDERED: PROMETHAZINE 25 MG/1 ML VIAL IM STA (10:15)
[2018-02-06] MEDS ORDERED: LACTATED RINGERS 1,000 ML IV ONE (10:15)
[2018-02-06 10:23] LABS: BACTERIA,URINE Rare /HPF (None Seen); SQUAMOUS EPITHELIAL CELL,UR FEW Squamous (<= Few)
[2018-02-06] MEDS ORDERED: SODIUM CHLORIDE FLUSH 0.9% 10 ML SYRINGE ONE (10:23)
== END 2018-02-06 11:40 | disposition home or self-care (01) ==
LOC: WFO 09:47 → FBP 09:49 → WFO 11:40
PROVIDERS: ATTEND Registered Nurse
DX: O21.2 Late vomiting of pregnancy (principal); Z3A.21 21 weeks gestation of pregnancy
CPT/HCPCS: 81001; 96374; 99212; J2765; J7120; 87086

== ENCOUNTER 2018-04-09 10:28 | Outpatient (CLI) | payer MEDICAID ==
[2018-04-09 11:50] LABS: HGB - HEMOGLOBIN 10.2 g/dL (12.0-16.0); MEAN CORPUSCULAR HEMOGLOBIN 29.6 pg (27.0-31.0); MEAN CORPUSCULAR HGB CONC 33.7 g/dL (32.0-36.0); MEAN CORPUSCULAR VOLUME 87.8 fL (81.0-99.0); MEAN PLATELET VOLUME 7.8 fL (7.9-10.8); RED BLOOD COUNT 3.44 10^6/uL (4.20-5.40); RED CELL DISTRIBUTION WIDTH 15.1 % (12.0-15.0); WHITE BLOOD COUNT 11.8 x10^3/uL (4.8-10.8)
== END 2018-04-09 10:29 | disposition home or self-care (01) ==
LOC: LAB 10:28
PROVIDERS: ATTEND Nurse Practitioner Obstetrics & Gynecology
DX: O09.70 Supervision of high risk pregnancy due to social problems, unspecified trimester (principal)
CPT/HCPCS: 36415; 82950; 85027; 86850

== ENCOUNTER 2018-05-21 09:53 | Outpatient (CLI) | payer MEDICAID | END 2018-05-21 23:59 | disposition home or self-care (01) | LOC: LAB.R 09:53 | PROVIDERS: ATTEND Nurse Practitioner Obstetrics & Gynecology | DX: O23.599 Infection of other part of genital tract in pregnancy, unspecified trimester (principal); Z36.85 Encounter for antenatal screening for Streptococcus B; Z36.89 Encounter for other specified antenatal screening | CPT/HCPCS: 87480; 87491; 87510; 87591; 87660; 87797 ==

== ENCOUNTER 2018-05-21 10:03 | Outpatient (CLI) | payer MEDICAID ==
[2018-05-22 10:56] LABS: HIV AG/AB 4TH GEN NON-REACTIVE (NON-REACTIVE)
[2018-05-22 12:41] LABS: HEPATITIS C ANTIBODY NON-REACTIVE (NON-REACTIVE)
[2018-05-25 12:26] LABS: HSV 1 IGG TYPE SPECIFIC AB <0.90 index; HSV 2 IGG TYPE SPECIFIC AB <0.90 index
== END 2018-05-21 10:04 | disposition home or self-care (01) ==
LOC: LAB 10:03
PROVIDERS: ATTEND Nurse Practitioner Obstetrics & Gynecology
DX: Z11.3 Encounter for screening for infections with a predominantly sexual mode of transmission (principal); O23.599 Infection of other part of genital tract in pregnancy, unspecified trimester; Z36.85 Encounter for antenatal screening for Streptococcus B; Z36.89 Encounter for other specified antenatal screening
CPT/HCPCS: 36415; 81599; 86592; 86695; 86696; 86803; 87389; 87480; 87491; 87510; 87591; 87660; 87797

== ENCOUNTER 2018-05-24 08:00 | Outpatient (CLI) | payer MEDICAID | END 2018-05-24 23:59 | disposition home or self-care (01) | LOC: LAB.N 08:00 | PROVIDERS: ATTEND Nurse Practitioner Obstetrics & Gynecology | DX: R82.79 Other abnormal findings on microbiological examination of urine (principal) | CPT/HCPCS: 87086 ==

== ENCOUNTER 2018-06-02 18:00 | Outpatient (CLI) | payer MEDICAID ==
[2018-06-02 18:16] VITALS: BP 109/63
[2018-06-02 18:57] LABS: BASOPHILS # (AUTO) 0.1 10^3/uL (0.0-0.1); BASOPHILS % (AUTO) 0.5 %; EOSINOPHILS # (AUTO) 0.2 10^3/uL (0.0-0.7); EOSINOPHILS % (AUTO) 1.5 %; HGB - HEMOGLOBIN 10.7 g/dL (12.0-16.0); LYMPHOCYTES # (AUTO) 3.8 10^3/uL (1.5-3.5); LYMPHOCYTES % (AUTO) 30.3 %; MEAN CORPUSCULAR HEMOGLOBIN 27.8 pg (27.0-31.0); MEAN CORPUSCULAR HGB CONC 31.8 g/dL (32.0-36.0); MEAN CORPUSCULAR VOLUME 87.2 fL (81.0-99.0); MONOCYTES % (AUTO) 7.8 %; NEUTROPHILS # (AUTO) 7.5 10^3/uL (1.5-6.6); NEUTROPHILS % (AUTO) 59.9 %; PLT - PLATELET COUNT 338 10^3/uL (130-450); RED BLOOD COUNT 3.84 10^6/uL (4.20-5.40); RED CELL DISTRIBUTION WIDTH 16.7 % (12.0-15.0); WHITE BLOOD COUNT 12.5 x10^3/uL (4.8-10.8)
[2018-06-02 18:58] LABS: BILIRUBIN,URINE NEGATIVE (NEGATIVE); GLUCOSE, URINE (UA) NEGATIVE (NEGATIVE); KETONES,URINE (UA) NEGATIVE (NEGATIVE); LEUKOCYTE ESTERASE, URINE NEGATIVE (NEGATIVE); NITRITE,URINE NEGATIVE (NEGATIVE); OCCULT BLOOD,URINE TRACE-INTA (NEGATIVE); PH,URINE 6.5 PH (5.0-7.5); PROTEIN,URINE NEGATIVE (NEGATIVE); UROBILINOGEN,URINE 0.2 (NORMAL) E.U./dL (NORMAL)
[2018-06-02 19:03] LABS: CLARITY,URINE CLEAR (CLEAR)
[2018-06-02 19:09] LABS: ALBUMIN 3.1 g/dL (3.2-5.5); ALBUMIN/GLOBULIN RATIO 0.8 (1.0-2.2); BILIRUBIN,TOTAL 0.4 mg/dL (0.2-1.0); CALCIUM 8.9 mg/dL (8.5-10.3); CREATININE 0.6 mg/dL (0.4-1.0)
--- NOTE | 2018-06-02 21:09 | Ultrasound Report ---
Reason: acute abd pain Procedure Date: 06/02/2018 Accession Number: [id number] / [id number] Procedure: US - OB Limited CPT Code: FULL RESULT: EXAM: LIMITED OBSTETRICAL ULTRASOUND EXAM DATE: 06/02/2018 08:54 PM. CLINICAL HISTORY: Acute abd pain. COMPARISON: OB LIMITED 01/11/2018 8:13 AM. TECHNIQUE: Real-time sonographic evaluation of the fetus performed by the computer information science professor. Multiple contact representative static images were saved for review. Additional transvaginal imaging to more accurately evaluate cervical length/placental position/etc. DATING: Established EGA 38 weeks/0 days with MOISES 06/16/2018. GENERAL EVALUATION [place] . Cardiac activity: 144 bpm. movement: Visualized. Presentation: Cephalic. Placenta: Anterior position. Amniotic fluid: Normal. FAYE 17.1 cm. MVP 5.5 cm. IMPRESSION: 1. [place] live intrauterine with gestational age 38 weeks 0 days based on established MOISES.. 2. Anterior placenta. No placenta previa. No abruption. 3. Normal FAYE RADIA
--- NOTE | 2018-06-07 16:47 | PROVIDER PROGRESS NOTE ---
Subjective - Subjective Subjective: Pt reports persistent abdominal pain in addition to uterine contractions. She denies VB or Lof. Reports +FM. She denies DOE, visual disturbances, or edema. Diagnosis: Epigastric pain complicating NST reactive. Baseline 130s, moderate variability, + accels no decels. Contractions intermittent every 3-4min which patient can feel happening but denies pain. BP WNL. PIH labs WNL. CBC WNL with the exception of anemia complication - pt instructed to increase her intake of iron rich foods. U/S secondary to abdominal pain in ordered to r/o placental abruption -placenta WNL. No evidence of abruption. Pt released home with precautions. Objective - Lab Results Fish Bones: 06/02/18 18:42 06/02/18 18:42
== END 2018-06-02 21:30 | disposition home or self-care (01) ==
LOC: WFO 18:00 → FBP 18:03 → WFO 21:30
PROVIDERS: ATTEND Nurse Practitioner Obstetrics & Gynecology
DX: O99.89 Other specified diseases and conditions complicating pregnancy, childbirth and the puerperium (principal); R10.13 Epigastric pain; Z3A.38 38 weeks gestation of pregnancy
CPT/HCPCS: 76815; 80053; 81001; 81003; 85025; 87086; 99213

== ENCOUNTER 2018-06-12 21:44 | Inpatient (IN) | payer MEDICAID ==
[2018-06-12] MEDS ORDERED: PENICILLIN G POTASSIUM 5,000,000 UNIT in SODIUM CHLORIDE 0.9% MINIBAG 100 ML IV ONE (22:21)
[2018-06-12] MEDS ORDERED: SODIUM CHLORIDE FLUSH 0.9% 10 ML SYRINGE ONE (22:39)
[2018-06-12 22:46] LABS: BASOPHILS # (AUTO) 0.1 10^3/uL (0.0-0.1); BASOPHILS % (AUTO) 0.9 %; EOSINOPHILS # (AUTO) 0.1 10^3/uL (0.0-0.7); EOSINOPHILS % (AUTO) 1.2 %; HGB - HEMOGLOBIN 10.2 g/dL (12.0-16.0); LYMPHOCYTES # (AUTO) 4.1 10^3/uL (1.5-3.5); LYMPHOCYTES % (AUTO) 34.9 %; MEAN CORPUSCULAR HEMOGLOBIN 27.3 pg (27.0-31.0); MEAN CORPUSCULAR VOLUME 85.2 fL (81.0-99.0); MEAN PLATELET VOLUME 8.1 fL (7.9-10.8); MONOCYTES % (AUTO) 8.8 %; NEUTROPHILS # (AUTO) 6.4 10^3/uL (1.5-6.6); NEUTROPHILS % (AUTO) 54.2 %; PLT - PLATELET COUNT 409 10^3/uL (130-450); RED BLOOD COUNT 3.73 10^6/uL (4.20-5.40); RED CELL DISTRIBUTION WIDTH 16.4 % (12.0-15.0); WHITE BLOOD COUNT 11.8 x10^3/uL (4.8-10.8)
[2018-06-12] MEDS: LACTATED RINGERS 1,000 ML IV SCH (23:07)
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
[2018-06-13] MEDS: miSOPROStol 100 MCG TABLET BC SCH ×2 (00:15→05:11)
[2018-06-13] MEDS ORDERED: SODIUM CHLORIDE 0.9% 500 ML IV ONE (00:15)
[2018-06-13] MEDS ORDERED: LACTATED RINGERS 1,000 ML IV ONE ×2 (00:18→22:14)
[2018-06-13] MEDS: PENICILLIN G POTASSIUM 2,500,000 UNIT in SODIUM CHLORIDE 0.9% 100ML 100 ML IV SCH ×5 (04:20→21:30)
[2018-06-13] MEDS: ONDANSETRON 4 MG/2 ML VIAL IVP PRN ×3 (05:05→22:00)
[2018-06-13] MEDS: SODIUM CHLORIDE FLUSH 0.9% 10 ML SYRINGE IVP SCH ×3 (05:09→19:57)
--- NOTE | 2018-06-13 07:13 | PROVIDER PROGRESS NOTE ---
Labor Progress Note - Uterine Monitoring Uterine Monitoring Mode: positive: External toco Contraction Frequency (min/apart): 1.5-4 Contraction Intensity: positive: Mild to moderate Uterine Resting Tone: positive: Soft - Monitoring Monitor Mode: positive: External ultrasound Heart Rate Baseline: 140 Heart Rate Variability: positive: Moderate (6-25 bmp) Accelerations: positive: Present, 15x15 Decelerations: positive: None Strip Review: positive: Category I - Labor Progress Note Labor Progress Note/Additional Text: S: Walking the halls upon my arrival to the unit. Has been unable to rest during the night. She feels she maybe had a 30 minute nap but otherwise has been awake. She states she has never slept in a hospital before and finds it difficult to rest due to noise, anxiety, and having to sit in certain positions in order to adequately monitor the baby. She reports anxiety after hearing another patient on the unit in active labor and feels increased anxiety after realizing that she is going to be that uncomfortable. Feels better after hearing that this patient did not have an epidural but she does now. Lisa is hoping for somewhat early placement of an epidural. She had a bought of N/V but feels better following administration of zofran. Grandmother supportive at the bedside. O: BP 120/62, HR 79, RR 20, T 37.1 Contractions palpate mild every 1.5-4 minutes with soft resting tone. FHR baseline 140, moderate variability, + accels, no decels A: 23yo @ 39.3wks gestation by LMP SROM x 11.5 hours - afebrile FHR Category I Pre-induction cervical ripening with misoprostol 50mcg q 4 hours x 2 doses GBS positive - penicillin for prophylaxis per protocol - has received 2 total doses P: Continuous monitoring Will d/c use of misoprostol and initiate pitocin with titration per protocol at 1014. Epidural per maternal request Continue administration of penicillin for GBS prophylaxis per protocol. Anticipate spontaneous vaginal delivery.
[2018-06-13] MEDS ORDERED: LIDOCAINE-MPF 1% 30 ML VIAL ONE (09:06)
[2018-06-13] MEDS ORDERED: miSOPROStol 200 MCG TABLET ONE (09:06)
[2018-06-13] MEDS: DOCUSATE SODIUM 100 MG CAPSULE PO SCH (09:11)
[2018-06-13] MEDS: SODIUM CHLORIDE FLUSH 0.9% 10 ML SYRINGE IVP PRN ×2 (09:11→13:16)
[2018-06-13] MEDS ORDERED: OXYTOCIN/SODIUM CHLORIDE 500 ML IV SCH (09:14)
[2018-06-13] MEDS ORDERED: LACTATED RINGERS 500 ML IV ONE ×2 (09:27→11:06)
--- NOTE | 2018-06-13 10:04 | ANESTHESIA ---
Pre-Anesthesia VS, & Labs - Diagnosis active labor - Procedure labor epidural Height 5 ft 5 in Weight (kg) 111.13 kg Body Mass Index 37.4 - NPO Other - Is Patient ?: Yes - Lab Results Current Lab Results: Laboratory Tests 06/12/18 22:40: WBC 11.8 H, RBC 3.73 L, Hgb 10.2 L, Hct 31.8 L, MCV 85.2, MCH 27.3, MCHC 32.0, RDW 16.4 H, Plt Count 409, MPV 8.1, Neut # (Auto) 6.4, Lymph # (Auto) 4.1 H, [place] # (Auto) 1.0, Eos # (Auto) 0.1, Baso # (Auto) 0.1, Absolute Nucleated RBC 0.01, Nucleated RBC % 0.1 Lab results reviewed: Yes Fish Bones: 06/12/18 22:40 Home Medications and Allergies Active Medications Docusate Sodium (Colace 100mg Capsule) 100 mg PO DAILY [facility] Last Admin: 06/13/18 09:11 Dose: 100 mg Lactated Ringer's (Lr) 1,000 mls @ 150 mls/hr IV .Q6H40M [facility] Last Admin: 06/12/18 23:07 Dose: 150 mls/hr Penicillin G Potassium 2,500, (000 unit/ Sodium Chloride) 100 mls @ 200 mls/hr IV Q4H [facility] Last Admin: 06/13/18 09:11 Dose: 200 mls/hr Oxytocin/Sodium Chloride (Pitocin/Sodium Chloride) 500 mls @ 1 mls/hr IV TITR [facility]; Protocol Last Admin: 06/13/18 09:32 Dose: 1 milliunit/min, 1 mls/hr Ondansetron HCl (Zofran Inj) 4 mg IVP Q4H PRN PRN Reason: Nausea / Vomiting Last Admin: 06/13/18 05:05 Dose: 4 mg Sodium Chloride (Normal Saline Flush 0.9%) 10 ml IVP PRN PRN PRN Reason: NEEDED PER PROVIDER ORDERS Last Admin: 06/13/18 09:11 Dose: 10 ml Sodium Chloride (Normal Saline Flush 0.9%) 10 ml IVP 0100,0900,1700 [facility] Last Admin: 06/13/18 09:11 Dose: 10 ml Ondansetron Odt [Zofran Odt] 4 tab PO Q8HR PRN 11/28/17 Ranitidine HCl [Acid Leases And Land Supervisor] 1 tab PO DAILY 11/28/17 Allergies/Adverse Reactions: Allergies Allergy/AdvReac Type Severity Reaction Status Date / Time hydrocodone [From Vicodin] Allergy Hives Verified 01/11/18 07:02 Anes History & Medical History - Anesthetic History Anesthesia Complications: reports: No previous complications Family history of Anesthesia Complications: Denies Family history of Malignant Hyperthermia: Denies (the patient has bilateral sciatica) - Medical History Smoking Status: Former smoker - Obstetrical History : 1 Parity: 0 Complications: positive: Maternal drug use Exam General: Alert, Oriented x3, Cooperative, No acute distress Mouth Openin Fingerbreadth Mallampati classification: I Thyromental Distance: 4-6 cm Respiratory: Lungs clear, Normal breath sounds, No respiratory distress, No accessory muscle use Cardiovascular: Regular rate, Normal S1, Normal S2, No murmurs Plan Anesthesia Type: Epidural Consent for Procedure(s) Verified and Reviewed: Yes Code Status: Attempt Resuscitation ASA classification: 2-Mild systemic disease Is this case an emergency?: No
[2018-06-13] MEDS ORDERED: fent/BUPIV 2 MCG/0.125% 250 ML EP ONE (10:57)
[2018-06-13] MEDS ORDERED: METOCLOPRAMIDE 10 MG/2 ML VIAL IVP PRN (11:06)
[2018-06-13] MEDS ORDERED: ONDANSETRON 4 MG/2 ML VIAL IVP PRN (11:06)
[2018-06-13] MEDS ORDERED: ePHEDrine 50 MG/ML VIAL IVP PRN (11:06)
[2018-06-13] MEDS ORDERED: NALBUPHINE 10 MG/ML AMP IVP PRN (11:06)
[2018-06-13] MEDS ORDERED: diphenhydrAMINE INJ 50 MG/ML VIAL IVP PRN (11:06)
[2018-06-13] MEDS ORDERED: NALOXONE 0.4 MG/ML VIAL IVP PRN (11:06)
[2018-06-13] MEDS ORDERED: OXYTOCIN 10 UNIT/ML VIAL IV ONE (11:14)
[2018-06-13] MEDS ORDERED: ceFAZolin 2 GM/50 ML 2 GM/50 ML BAG IV ONE (11:14)
[2018-06-13] MEDS ORDERED: TRANEXAMIC ACID 1,000 MG/10 ML VIAL IV ONE (11:14)
[2018-06-13] MEDS ORDERED: ePHEDrine 50 MG/ML VIAL IVP ONE (11:14)
[2018-06-13] MEDS ORDERED: BUPIVACAINE 0.5% PF 30 ML VIAL SUBQ ONE (11:14)
--- NOTE | 2018-06-13 12:30 | PROVIDER PROGRESS NOTE ---
Labor Progress Note - Uterine Monitoring Uterine Monitoring Mode: positive: External toco Contraction Frequency (min/apart): 2-4 Contraction Intensity: positive: Strong Uterine Resting Tone: positive: Soft - Monitoring Heart Rate Baseline: 130 Heart Rate Variability: positive: Moderate (6-25 bmp) Accelerations: positive: Present, 15x15 Decelerations: positive: None Strip Review: positive: Category I - Vaginal Exam Dilation (in cm): 6 Effacement (%): 90 Station: -1 Cervical Position: Anterior - Labor Progress Note Labor Progress Note/Additional Text: S: Laying comfortably in bed with epidural. Feeling presence of contractions but nothing overly uncomfortable. She is tired but does feel like she will try to t ann marie a nap. Grandma is supportive at the bedside. O: BP 129/66, P 87, T 36.8 FHR baseline 130s, moderate variability, + accels, no decels Contractions palpate firm every 2-4 minutes with soft resting tone. SVE 6-7/90/-1, vertex A: 23yo @ 39.4wks gestation by LMP SROM x 14 hours - afebrile Augmented with pitocin currently @ 3mU/mL FHR Category I P: Continuous monitoring Continue titration of pitocin per protocol Continue pencillin per protocol for GBS prophylaxis Anticipate spontaneous vaginal delivery.
[2018-06-13] MEDS: ACETAMINOPHEN 500 MG TABLET PO PRN (15:15)
[2018-06-13] MEDS ORDERED: ROPIVACAINE 0.2% PF 20 ML AMPULE ONE ×2 (15:44→21:33)
--- NOTE | 2018-06-13 17:57 | PROVIDER PROGRESS NOTE ---
Labor Progress Note - Uterine Monitoring Uterine Monitoring Mode: positive: External toco Contraction Frequency (min/apart): 2-3 Contraction Intensity: positive: Strong Uterine Resting Tone: positive: Soft - Monitoring Monitor Mode: positive: External ultrasound Heart Rate Baseline: 125 Heart Rate Variability: positive: Moderate (6-25 bmp) Accelerations: positive: Present, 15x15 Decelerations: positive: None Strip Review: positive: Category I - Vaginal Exam Dilation (in cm): 9 Effacement (%): 100 Station: 0 - Labor Progress Note Labor Progress Note/Additional Text: S: Feeling increased discomfort in her back. Had 1 bolus from anesthesia. Does feel slight vaginal pressure. Unable to reduce anterior lip and patient placed in thrones position. Grandmother supportive at the bedside. O: FHR baseline 130s, moderate variability, + accels, no decels Contractions palpate strong every 2-3 minutes with soft resting tone. SVE 9/100/0, vertex Strong maternal pushing effort. Persistent anterior lip which does not resolve with maternal pushing effort. Patient placed in thrones position to labor down. A: 23yo @ 39.4wks gestation by LMP Active labor Pitocin IOL secondary to PROM SROM x 18.5hrs - afebrile GBS positive - penicillin x 4.[address] with adequate pain management FHR category I P: Continuous monitoring Penicillin for GBS prophylaxis per protocol Continue pitocin with titration per protocol Anticipate spontaneous vaginal delivery.
--- NOTE | 2018-06-13 19:27 | PROVIDER PROGRESS NOTE ---
Labor Progress Note - Uterine Monitoring Uterine Monitoring Mode: positive: External toco Contraction Frequency (min/apart): 2-4 Contraction Intensity: positive: Strong Uterine Resting Tone: positive: Soft - Monitoring Monitor Mode: positive: External ultrasound Heart Rate Baseline: 140 Heart Rate Variability: positive: Moderate (6-25 bmp) Accelerations: positive: Present, 15x15 Decelerations: positive: Variable Strip Review: positive: Category I - Vaginal Exam Dilation (in cm): 9 Effacement (%): 100 Station: 0 - Labor Progress Note Labor Progress Note/Additional Text: Laying far on left side. Unable to hold back cervical lip which is now extending further around head. Exaggerated side lying x 30 min on left side, exaggerated side lying on right side x 30 minutes, and thrones x 30 min. Will then repeat SVE. Consider IUPC. Plan to rotate x 1.5 hours and then re-check SVE and trial pushing. Titrate pitocin per protocol- pitocin @ 5mU/mL. Continue pencillin for GBS prophylaxis - s/p 5 doses
[2018-06-13] MEDS: LACTATED RINGERS 1,000 ML IV SCH ×2 (19:58→21:10)
[2018-06-13] MEDS ORDERED: ceFAZolin 2 GM in SODIUM CHLORIDE 0.9% MINIBAG 100 ML IV ONE (21:41)
[2018-06-13] MEDS ORDERED: CITRIC ACID/SODIUM CITRATE 15 ML UDC PO ONE (21:41)
--- NOTE | 2018-06-13 21:59 | PROVIDER PROGRESS NOTE ---
Labor Progress Note - Uterine Monitoring Uterine Monitoring Mode: positive: External toco Contraction Frequency (min/apart): 2-3 Contraction Intensity: positive: Strong Uterine Resting Tone: positive: Soft - Monitoring Monitor Mode: positive: External ultrasound Heart Rate Baseline: 140 Heart Rate Variability: positive: Moderate (6-25 bmp) Accelerations: positive: Present, 15x15 Decelerations: positive: Early, Late, Variable Strip Review: positive: Category II - Vaginal Exam Dilation (in cm): 9 Effacement (%): 100 Station: 0 - Labor Progress Note Labor Progress Note/Additional Text: Patient laying in bed on right side upon my arrival. She states she is very tired and feels that she wants to be done. After discussing my recommendation for a delivery secondary to failure to progress, she states she feels somewhat relieved and states "I just want to be done with this". She continues to feel intermittent back discomfort. Dr. Marino notified to bolus patient's epidural. Reviewed status with implementation engineer physician Dr. Vang and she is in agreement that a delivery is appropriate at this time. Reviewed again with patient. litharge supervisor notified to mobilize OR team and auto mechanics instructor for category II delivery. Dx: 1. 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 intolerance of labor with increased pitocin - pitocin turned off 3. GBS positive - s/p Penicillin administration per protocol x 6 total doses 4. Prolonged rupture of membranes - SROM x 25.5 hours - afebrile - no signs of maternal or infection at this time. At this time medical care was handed to Dr. Vang. Patient, support person, nursing staff all in agreement with above plan and deny further questions or concerns at this time.
--- NOTE | 2018-06-13 22:13 | CONSULTATION NOTE ---
History of Present Illness - History of Present Illness HPI Comment/Other: Consulted by Hawa Galvan CNM for failure to progress. 23yo P0 admitted for PROM clear >24h ago, augmented with cervical ripening then with pitocin, progressed nicely to 9cm, has been t 9cm for 6h despite position changes, strong UC to palpation q2min. PMH: morbid obesity, anx/dep, moderate persistent asthma PSH: neg Allergies: hydrocodone --> throat swelling Otherwise refer to Ree Galvan's thorough admission note, reviewed in detail. 98.9, HR 116, 104/45, 98% RA, RR 14 FHT 120, mod LTV, looks good after pitocin was turned off UC q3-4min currently UOP 10cc/h for the past 4h SVE 9cm per Mandy A/P: 23yo P0 at 40w with PROM >24h and failure to progress at 9cm. As the patient is a primipara, we gave her every opportunity to progress but at this time it is clear that it is time for delivery. Pt is very ready for this. Discussed alternative of continuing to wait and unlikely to deliver. Reviewed procedure. Discussed risks of bleeding, infection, trauma to local organs, anesthesia complictions, and problems with future pregnancies due to scar on the uterus. All questions answered and consent signed. --Ancef and bicitra --Hold NSAID until we see about postop UOP. If low then check renal function. --Plan for wound vac. History - Past Medical History MRSA Hx?: No - POLST Patient has POLST: No Meds/Allgy - Home Medications Home Medications: Ambulatory Orders Medication Instructions Recorded Confirmed Metoclopramide [Reglan] 10 mg PO Q6H PRN #10 tablet 11/28/17 Ondansetron Odt [Zofran Odt] 4 tab PO Q8HR PRN 11/28/17 11/28/17 Ranitidine HCl [Acid Farm Machinery Assembler] 1 tab PO DAILY 11/28/17 11/28/17 - Allergies Allergies/Adverse Reactions: Allergies Allergy/AdvReac Type Severity Reaction Status Date / Time hydrocodone [From Vicodin] Allergy Hives Verified 01/11/18 07:02 Conclusion/Plan - Lab Results Lab results reviewed: Yes Fish Bones: 06/12/18 22:40
[2018-06-14] MEDS ORDERED: MEPERIDINE 50 MG/ML VIAL ONE
[2018-06-14] MEDS ORDERED: WITCH HAZEL/GLYCERIN 1 EACH MED..PAD TOP PRN (00:59)
[2018-06-14] MEDS ORDERED: HYDROCORTISONE 1% CREAM 28 GM TUBE PR PRN (00:59)
[2018-06-14] MEDS ORDERED: IBUPROFEN 600 MG TABLET PO SCH (01:00)
--- NOTE | 2018-06-14 01:44 | OPERATIVE REPORT ---
Operative Report - General Admit Date: 06/12/18 Procedure Date: 06/13/18 Planned Procedure: Primary low transverse Pre-Op Diagnosis: IUP at 39w, PROM, GBS +, failure to progress stalled at 9cm Procedure Performed: Primary low transverse Post Op Diagnosis: Same as preop - Procedure Note Primary Surgeon: Ciera Secondary Surgeon: Letty = Phyllis Galvan CNM Anesthesia Technique: Epidural Pathology: Placenta, cord blood for typing IV Fluids (mL): 700 Estimated Blood Loss (mL): 900 Urine Output (mL): 100 Findings: Normal uterus, ovaries, and fallopian tubes Clear amniotic fluid Liveborn male, weight 3980g = 8lbs 12oz, apgars 9/9 Complications: none
[2018-06-14] MEDS: ACETAMINOPHEN 500 MG TABLET PO PRN ×3 (03:20→22:08)
[2018-06-14] MEDS ORDERED: SODIUM CHLORIDE FLUSH 0.9% 10 ML SYRINGE ONE (04:45)
[2018-06-14] MEDS: KETOROLAC 30 MG/ML VIAL IVP PRN ×4 (05:05→23:47)
[2018-06-14] MEDS: SODIUM CHLORIDE FLUSH 0.9% 10 ML SYRINGE IVP PRN ×3 (05:08→23:49)
[2018-06-14 07:15] LABS: BASOPHILS # (AUTO) 0.1 10^3/uL (0.0-0.1); BASOPHILS % (AUTO) 0.5 %; EOSINOPHILS % (AUTO) 0.1 %; HGB - HEMOGLOBIN 9.4 g/dL (12.0-16.0); LYMPHOCYTES % (AUTO) 11.6 %; MEAN CORPUSCULAR HEMOGLOBIN 27.5 pg (27.0-31.0); MEAN CORPUSCULAR HGB CONC 32.3 g/dL (32.0-36.0); MEAN PLATELET VOLUME 7.5 fL (7.9-10.8); MONOCYTES % (AUTO) 5.9 %; NEUTROPHILS # (AUTO) 14.2 10^3/uL (1.5-6.6); NEUTROPHILS % (AUTO) 81.9 %; PLT - PLATELET COUNT 351 10^3/uL (130-450); RED BLOOD COUNT 3.43 10^6/uL (4.20-5.40); RED CELL DISTRIBUTION WIDTH 16.4 % (12.0-15.0); WHITE BLOOD COUNT 17.3 x10^3/uL (4.8-10.8)
[2018-06-14 07:31] LABS: CREATININE 0.6 mg/dL (0.4-1.0)
[2018-06-14] MEDS: SIMETHICONE CHEW 80 MG TABLET PO SCH (09:18)
[2018-06-14] MEDS: DOCUSATE SODIUM 100 MG CAPSULE PO SCH (09:18)
[2018-06-14] MEDS: oxyCODONE 5 MG TABLET PO PRN ×3 (09:18→22:09)
[2018-06-14] MEDS ORDERED: SODIUM CHLORIDE FLUSH 0.9% 10 ML SYRINGE IVP PRN (11:04)
--- NOTE | 2018-06-14 12:03 | PROVIDER PROGRESS NOTE ---
Subjective - Subjective Subjective: S: Has some stinging pain at the left portion of the incison. Eating, ambulating, urinating well. difficult with large breasts. Scant bleeding. Happy and tired. Tmax 99.0, AVSS Alert, smiling, NAD Abd soft, approriately tender, non distended Incision covered by wound vac, no surrounding erythema LE without c/c/e Calves nontender without warmth A/P: P1 POD 1/2 s/p primary LTCS for arrest at 9cm. Had PROM >24h and was not infected at delivery. Doing well, meeting milestones. Continue routine postop care. Educated about expected sensations postop. Objective - Vital Signs/Intake & Output Vital Signs: Vital Signs x48h Temp Pulse Resp BP 06/14/18 10:00 99.0 F 74 16 116/55 L 06/14/18 05:30 98.2 F 95 20 112/71 Intake & Output: Intake & Output 06/11/18 06/12/18 06/13/18 06/14/18 22:59 22:59 23:59 23:59 Intake Total 1400 Output Total 1285 Balance 115 - Lab Results Fish Bones: 06/14/18 07:10 06/14/18 07:10 Other Labs: Lab Results x24hrs 06/14/18 06/14/18 06/12/18 Range/Units 07:10 07:10 22:40 WBC 17.3 H (4.8-10.8) x10^3/uL RBC 3.43 L (4.20-5.40) 10^6/uL Hgb 9.4 L (12.0-16.0) g/dL Hct 29.2 L (37.0-47.0) % MCV 85.0 (81.0-99.0) fL MCH 27.5 (27.0-31.0) pg MCHC 32.3 (32.0-36.0) g/dL RDW 16.4 H (12.0-15.0) % Plt Count 351 (130-450) 10^3/uL MPV 7.5 L (7.9-10.8) fL Neut # (Auto) 14.2 H (1.5-6.6) 10^3/uL Lymph # (Auto) 2.0 (1.5-3.5) 10^3/uL [place] # (Auto) 1.0 (0.0-1.0) 10^3/uL Eos # (Auto) 0.0 (0.0-0.7) 10^3/uL Baso # (Auto) 0.1 (0.0-0.1) 10^3/uL Absolute Nucleated RBC 0.00 x10^3/uL Nucleated RBC % 0.0 /100WBC Creatinine 0.6 (0.4-1.0) mg/dL Estimated GFR (MDRD) 122 (>89) Blood Type O POSITIVE Antibody Screen NEGATIVE Crossmatch IS Only See Detail
--- NOTE | 2018-06-14 13:31 | OPERATIVE REPORT ---
DATE OF SERVICE: 06/13/2018 Physician: Jayleen Vang MD PREOPERATIVE DIAGNOSES 1. Intrauterine at 39 weeks. 2. Premature rupture of membranes. 3. Group B strep positive. 4. Failure to progress, arrested at 9 cm dilation. POSTOPERATIVE DIAGNOSES 1. Intrauterine at 39 weeks. 2. Premature rupture of membranes. 3. Group B strep positive. 4. Failure to progress, arrested at 9 cm dilation. PROCEDURE PERFORMED: Primary low transverse section. SURGEON: Jayleen Vang MD. GRADES 9 THROUGH 12 TEACHER: Phyllis Galvan CNM. ANESTHESIA: Epidural. ESTIMATED BLOOD LOSS: 100 mL IV FLUIDS: 700 mL URINE OUTPUT: 100 mL COUNTS: Correct x2. COMPLICATIONS: None apparent. DISPOSITION: Stable to the recovery room. PROPHYLAXIS: SCDs to bilateral lower extremities, 2 grams of Ancef IV. FINDINGS 1. Clear amniotic fluid. 2. Liveborn male, weight 3980 grams, which is 8 pounds 12 ounces, Apgars 9 at one minute and 9 at five minutes. 3. Normal uterus, ovaries, and fallopian tubes. DESCRIPTION OF PROCEDURE: Patient was brought to the operating room where her existing epidural was bolused. She was placed in a left tilt. heart tones were auscultated in the normal range. She was prepped and draped in the usual sterile fashion. A scalpel was used to make a Pfannenstiel skin incision approximately 3 cm superior to her pubic symphysis and her abdominal crease. This was carried down with the Bovie because she had quite a few bleeders in the subcutaneous area. These were grasped with hemostats and cauterized with a Bovie. The initial fascial incision was performed with a Bovie on cut. The fascial incision was then extended laterally and slightly superiorly with sharp dissection. Robert clamps were placed in the inferior margin of the fascial incision and the fascia was bluntly and sharply dissected off of the underlying rectus. The same was performed superiorly. The peritoneum was entered by grasping it and elevating it with two hemostats and then incising with Metzenbaum scissors. Peritoneal entry was confirmed. The incision was then further opened with traction. A bladder retractor was placed. A scalpel was used to make a transverse incision in the lower uterine segment. The uterine cavity was bluntly entered. The amniotic membranes were clear. The surgeon placed her hand around the head. There was quite a lot of room around the head and the fetus did not seem asynclitic. I am suspicious for an abnormally constricted pelvic inlet. The head was slowly elevated into the lower uterine segment and then elevated out of the incision. The remainder of the baby was delivered with fundal pressure. There was no nuchal cord. The cord was left pulsating for 30 seconds and then it was clamped x2 and cut and the baby was handed to the appliquer in waiting. Cord blood was collected. The placenta was delivered with external uterine massage and cord traction. It was intact and there were no trailing membranes. The uterine cavity was curetted with a dry lap and there were no retained membranes. The uterus was externalized and the uterine incision was closed with a running layer of 0 Vicryl. A second imbricating layer was performed. The imbrication was not perfect on the left side of the incision and so it was imbricated again with excellent results. The clots visible were removed. Normal maternal anatomy was identified. The uterus was then returned to its intraperitoneal location. The uterine incision was again inspected and was hemostatic. The fascia was hemostatic. On the rectus right side medial, there was an area of oozing that was more than usual. This was oversewn with a aecrwc-vj-hkiyi of 0 Monocryl. Uterine hemostasis was again observed to be excellent. The uterine tone had been great starting about two minutes post uterine extraction. The fascia was closed with a running layer of 0 Vicryl from end-to-end. The subcutaneous tissues were observed to be hemostatic. They were closed with interrupted sutures of 0 and 2-0 Vicryl. The skin was closed with a running subcuticular suture of 4-0 Monocryl. A wound VAC was then applied. Fundal massage revealed a uterus 1 cm below the umbilicus. A normal amount of blood and clot was extruded. The patient was washed and was sent to the PACU. TD: 06/14/2018 12:22 REVISED 06/24/2018jll Acct correction Orig. signed 06/15/2018@0927 MTDD
[2018-06-15] MEDS: SIMETHICONE CHEW 80 MG TABLET PO SCH ×3 (01:36→19:54)
[2018-06-15] MEDS: ACETAMINOPHEN 500 MG TABLET PO PRN ×3 (05:53→22:07)
[2018-06-15] MEDS: KETOROLAC 30 MG/ML VIAL IVP PRN (05:53)
[2018-06-15] MEDS: oxyCODONE 5 MG TABLET PO PRN (05:53)
--- NOTE | 2018-06-15 09:32 | PROVIDER PROGRESS NOTE ---
Subjective - Subjective Subjective: Feeling great today. Pain is minimal. OOB, urinating, eating well. + flatus. is challenging, tongue tie clipped. No heavy bleeding. AVSS Alert, smiling, NAD Abd soft appropriately tender, ND Fundus firm at U Incision covered by vac, no surrounding erythema Legs without tenderness or excessive warmth. Trace LE edema bilat. A/P: P1 PPD 2 s/p primary LTCS for FTP. Doing well. support, shower, stop toradol, remove IV, and transition to naproxen. Objective - Vital Signs/Intake & Output Vital Signs: Vital Signs x48h Temp Pulse Resp BP Pulse Ox 06/15/18 08:42 98.4 F 90 18 124/74 06/15/18 03:18 98.1 F 91 16 117/59 L 99 Intake & Output: Intake & Output 06/12/18 06/13/18 06/14/18 06/15/18 22:59 23:59 23:59 23:59 Intake Total 1900 Output Total 1285 Balance 615 - Lab Results Fish Bones: 06/14/18 07:10 06/14/18 07:10
[2018-06-15] MEDS: NAPROXEN 250 MG TABLET PO SCH (14:05)
[2018-06-15] MEDS: DOCUSATE SODIUM 100 MG CAPSULE PO SCH (14:07)
[2018-06-16] MEDS: NAPROXEN 250 MG TABLET PO SCH ×2 (01:56→14:54)
[2018-06-16] MEDS: SIMETHICONE CHEW 80 MG TABLET PO SCH ×2 (05:27→09:54)
[2018-06-16] MEDS: ACETAMINOPHEN 500 MG TABLET PO PRN (06:03)
--- NOTE | 2018-06-16 10:35 | PROVIDER PROGRESS NOTE ---
Subjective - Subjective Subjective: No new problems. Feeling great. Baby needs to stay due to fever. AVSS Alert, smiling, NAD Abd soft, nt/nd Fundus at umbilicus, NT Incision without erythema, covered by vac No LE tenderness. Trace edema bilat A/P: P1 PPD #2.5 s/p primary LTCS for FTP. Doing well, anticipate discharge tomorrow. Objective - Vital Signs/Intake & Output Vital Signs: Vital Signs x48h Temp Resp BP 06/16/18 07:46 98.8 F 18 123/66 Intake & Output: Intake & Output 06/13/18 06/14/18 06/15/18 06/16/18 23:59 23:59 23:59 23:59 Intake Total 1900 Output Total 1285 Balance 615 - Lab Results Fish Bones: 06/14/18 07:10 06/14/18 07:10 Other Labs: Lab Results x24hrs 06/12/18 Range/Units 22:40 Crossmatch IS Only See Detail
[2018-06-17] MEDS: ACETAMINOPHEN 500 MG TABLET PO PRN (00:09)
[2018-06-17] MEDS: NAPROXEN 250 MG TABLET PO SCH (06:31)
[2018-06-17] MEDS: SIMETHICONE CHEW 80 MG TABLET PO SCH (07:36)
--- NOTE | 2018-06-17 10:18 | DISCHARGE SUMMARY ---
Physician: Jayleen Vang MD DATE OF ADMISSION: 06/12/2018 DATE OF DISCHARGE: 06/17/2018 ADMISSION DIAGNOSES 1. Premature rupture of membranes. 2. Intrauterine at term. DISCHARGE DIAGNOSES 1. Failure to progress with a narrow pelvic inlet. 2. Status post section. OPERATIONS AND PROCEDURES: 06/13/2018, primary low transverse section for failure to progress with arrest at 9 cm for 5 hours. She had an 8-pound 12- ounce with Apgars of 9 and 9. Fluid was clear. She had normal maternal anatomy seen. HOSPITAL COURSE: The patient was admitted for PROM. She had no contractions, and so she was augmented with cervical ripening agents followed by Pitocin. She progressed nicely to 9 cm and then arrested. We made every effort to try to achieve cervical dilation. After 5 hours, it was clear that it was time to progress to a section. Patient's was performed, and it was uncomplicated. DISCHARGE CONDITION: Good. Patient did not have any problems . Her stay was extended a little bit because of a fever in her baby. By the time of discharge, she was eating, ambulating, and urinating without difficulties. She was passing gas but had not yet had a bowel movement. She was not having any significant vaginal bleeding. She had done nothing rojas other than expressing her milk b.i.d. She had plans to start at home. I advised that she start pumping every 2 hours today if she does want to do this because she is on the cusp of not being able to breastfeed at all. PHYSICAL EXAM VITAL SIGNS: Afebrile with normal vital signs. GENERAL: She is smiling, in no apparent distress. ABDOMEN: Soft, nontender and nondistended. Her wound VAC was intact without surrounding erythema. Fundus firm and at the umbilicus. There was no significant lower extremity edema. Her calves were nontender and without increased warmth. DISCHARGE MEDICATIONS 1. Oxycodone #12 with no refills given 5 mg. 2. Colace to soften stool. 3. Naproxen p.r.n. pain. The patient has a history of stomach upset with ibuprofen, and this is why a longer acting NSAID was chosen. 4. Continue vitamins at home. DISPOSITION: Home. Follow up in 1 week post delivery for a visit and a wound VAC removal. TD: 06/17/2018 08:31 ANGELA
[2018-06-17 13:56] VITALS: BP 139/69
--- NOTE | 2018-06-17 14:22 | Labor Flowsheet ---
Labor Flowsheet Datetime Report Generated by CPN: 06/17/2018 14:22 Datetime: 06/17/2018 08:40 VITAL SIGNS NBP Sys/Lynnette/Mean (mmHg): 139 : 69 : 85 Pulse: 85 LaborFlag: Labor Datetime: 06/16/2018 16:44 SpO2 (%): 100 Datetime: 06/13/2018 22:10 Antiemetics/Antacids: Bicitra 30 ml PO Datetime: 06/13/2018 22:09 UTERINE ACTIVITY Monitor Mode: External Frequency (min): 2-3.5 Quality: Strong Duration (sec): 60-80 Pattern: Normal: <= 5 Contractions in 10 Minutes Resting Tone (Palpate): Relaxed ASSESSMENT A Monitor Mode: External US FHR Baseline Rate : 135 FHR Baseline Changes: No Baseline Change Variability: Moderate 6-25 bpm Accelerations: 15X15 Category: Category I Datetime: 06/13/2018 22:04 Vital Sign Comments: Dr. Jamila declining ephedrine at this time. Datetime: 06/13/2018 22:01 PATIENT CARE IV/Blood Work: IV Bolus Started Patient Care Comments: 500ml Datetime: 06/13/2018 22:00 Medication Comments: 4mg Datetime: 06/13/2018 21:40 I/O Interventions: Vega Cath Inserted Datetime: 06/13/2018 21:31 ANESTHESIA Anesthesia Plans: Epidural Epidural Procedure Other: Redose Anesthesia Comments: Dr. 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: Other Pain Assessment Comments: increased back pain with position change Antibiotics: Penicillin IV (Units) @ Anesthesia Level Check: T10- Umbilicus Datetime: 06/13/2018 21:29 Monitor Interventions for UA: [place] Adjusted Datetime: 06/13/2018 21:26 Patient Position/Activity: Left Lateral Datetime: 06/13/2018 21:25 MEDICATIONS Pitocin (milliunits): Discontinued Datetime: 06/13/2018 21:15 Communication Comments: CNM Mandy @ bedside discussing plan of care for c/section Datetime: 06/13/2018 21:01 Stage of : Labor COMMUNICATION Communication: Call/Page Placed to Provider Provider Notified (Name): Phyllis Mandy, CNM Notification Reason: Status Update Datetime: 06/13/2018 20:55 Pitocin Checklist: No More than 2 Variable Decelerations > 60 Seconds in Duration and decreasing >6 0 bpm in 30 minutes; Uterus Palpates Soft between Contractions Contraction Comments: pitocin decreased d/t tachysystole and decels TEACHING Instructional Method: Verbal Plan of Care: Labor; Induction Labor/Induction: Tachysystole Interventions Teaching Comments: discussed interventions for tachysystole and FHR decelerations Datetime: 06/13/2018 20:45 Actions for Decelerations: Side to Side Comments: FHR decels heard on monitor at 2031 and 2039, interrupted strip. Datetime: 06/13/2018 20:42 Exam by: ELIA Francis Vaginal Exam Comments: 7/8 cm between contractions; persistent 1-2cm lip at 7 o'clock noted during contractions Datetime: 06/13/2018 20:33 Monitor Interventions for FHR: Ultrasound Adjusted Datetime: 06/13/2018 20:30 Decelerations: Late; Variable; Prolonged Datetime: 06/13/2018 20:00 VAGINAL EXAM Dilatation (cm): 9.0 Station: 0 Cervix, Consistency: Soft Cervix, Position: Anterior Datetime: 06/13/2018 19:30 MATERNAL ASSESSMENT Level of Consciousness: Fully Conscious Headache: Denies Breath Sounds, Left: Clear and Equal Breath Sounds, Right: Clear and Equal Nausea/Vomiting: Denies RUQ Epigastric Pain: Denies Oxygen Method: Room Air Unit Routine: Unit Personnel; Monitoring Pain Management: Epidural; Pain Scale/Goals; Comfort Measures Medications: Pitocin Datetime: 06/13/2018 19:04 STAGE 2 Pushing Position: Laboring Down Datetime: 06/13/2018 18:35 Pushing Progress: No Descent with Effective Pushing Datetime: 06/13/2018 18:34 Effacement (%): 100 Datetime: 06/13/2018 18:00 Temperature Route: Oral Datetime: 06/13/2018 15:17 Comfort Measures: Breathing/Relaxation; Family Support; Anesthesia Notified Datetime: 06/13/2018 15:15 Analgesics/Sedatives: Tylenol (mg) @ 1000 Datetime: 06/13/2018 14:32 Vaginal Bleeding: Normal Show Datetime: 06/13/2018 10:38 Epidural Procedure: Completed Datetime: 06/13/2018 10:08 PROCEDURE TIME OUT Procedure Verify: Correct Patient Position Epidural Positioning: Sitting Datetime: 06/13/2018 05:13 Cervical Ripening Agents: Cytotec @ 50
--- NOTE | 2018-06-23 12:19 | OPERATIVE REPORT ---
DATE OF SERVICE: 06/13/2018 Physician: Jayleen Vang MD PREOPERATIVE DIAGNOSES 1. Intrauterine at 39 weeks. 2. Premature rupture of membranes. 3. Failure to progress, stalled at 9 cm. 4. Group B strep positive. POSTOPERATIVE DIAGNOSES 1. Intrauterine at 39 weeks. 2. Premature rupture of membranes. 3. Failure to progress, stalled at 9 cm. 4. Group B strep positive. PROCEDURE PERFORMED: Primary low transverse section. SURGEON: Jayleen Vang MD. DIP BRAZIER: Phyllis Galvan CNM. ANESTHESIA: Epidural. COUNTS: Correct x2. COMPLICATIONS: None apparent. DISPOSITION: Stable to the recovery room. PROPHYLAXIS: SCDs and to bilateral lower extremities. ANTIBIOTICS: Ancef 2 grams IV. SPECIMEN: Placenta to pathology, and cord blood for typing. ESTIMATED BLOOD LOSS: 900 mL. IV FLUIDS: 700 mL. URINE OUTPUT: 100 mL. FINDINGS 1. Live born male, weight 8 pounds 12 ounces, Apgars 9 at one minute and 9 at five minutes. 2. Clear amniotic fluid. 3. Normal-appearing uterus, ovaries and fallopian tubes. DESCRIPTION OF PROCEDURE: The patient was brought to the operating room where her existing epidural was bolused. She was placed in left tilt. Her Vega catheter was preexisting. heart tones were auscultated in the normal range. She was prepped and draped in the usual sterile fashion. A scalpel was used to make a Pfannenstiel skin incision, 3 cm superior to the pubic symphysis. This was carried down to the fascia, which was nicked in the midline bilaterally. The fascial incision was extended laterally using Flores scissors. Kochers were placed on the inferior margin of the fascial incision, and the fascia was bluntly and sharply dissected off of the underlying rectus. The same was performed superiorly. The peritoneum was sharply entered. Room was deemed to be adequate. A bladder retractor was placed. A scalpel was used to make a transverse incision in the lower uterine segment. This was extended by using caudal and cranial pressure. The membranes were ruptured. The surgeon's hand was introduced into the pelvis, and the head was gently elevated. The fetus was delivered with fundal massage. The shoulders and body followed easily. The umbilical cord was left pulsating for a while. It was then clamped and cut, and the baby was handed to the banking services clerk and waiting. Cord blood for typing was obtained. The placenta was then delivered with external uterine massage and umbilical cord traction. It was intact. The uterus was curetted with a dry laparotomy, with no return of membranes seen. Uterine tone was good. The uterus was closed with a running layer of 0 Vicryl. A second imbricating incision was performed. Hemostasis of the uterine incision, rectus and fascia were normal. All obvious blood clots were removed from the pelvis. The fascia was closed with a single layer of 0 Vicryl going from end to end. The subcutaneous tissues were reapproximated with interrupted sutures of 2-0 Vicryl. The skin was closed with a running subcuticular suture of 4-0 PDS. Benzoin was sprayed, and then wound VAC was applied. The patient's fundus had been massaged throughout the procedure. This was repeated at the end of the procedure. The blood was washed from her body. She is transferred to the recovery room in good condition. TD: 06/23/2018 11:13 REVISED 06/24/2018 greer Acct correction Orig. signed 06/23/2018@1228 MTDD
== END 2018-06-17 11:45 | disposition home or self-care (01) | DRG 787 ==
LOC: WFO 21:44 → FBP 21:53 → WFO 22:20 → EEVIPCON 22:21 → FBP 22:21
PROVIDERS: ADMIT Nurse Practitioner Obstetrics & Gynecology; ATTEND Obstetrics & Gynecology
PROC: 10D00Z1 Extraction of Products of Conception, Low, Open Approach (ICD-10-PCS; principal; 2018-06-12)
DX: O42.02 Full-term premature rupture of membranes, onset of labor within 24 hours of rupture (principal); O99.324 Drug use complicating childbirth; O99.824 Streptococcus B carrier state complicating childbirth; F12.90 Cannabis use, unspecified, uncomplicated; O62.0 Primary inadequate contractions; O99.02 Anemia complicating childbirth; D64.9 Anemia, unspecified; O99.344 Other mental disorders complicating childbirth; F41.8 Other specified anxiety disorders; O99.334 Smoking (tobacco) complicating childbirth; O99.52 Diseases of the respiratory system complicating childbirth; J45.40 Moderate persistent asthma, uncomplicated; O99.214 Obesity complicating childbirth; E66.01 Morbid (severe) obesity due to excess calories; Z3A.39 39 weeks gestation of pregnancy; Z56.0 Unemployment, unspecified; Z37.0 Single live birth; Z62.810 Personal history of physical and sexual abuse in childhood
CPT/HCPCS: 36415; 82565; 85025; 86850; 86900; 86901; 86920; 99212; A9270; J0690; J2175; J2765; J7120